=== PATIENT | female | born 1945 | race Caucasian/White ===

== ENCOUNTER 2016-08-09 14:59 | Observation (INO) | payer MEDICARE, OTHER ==
[2016-08-09] MEDS ORDERED: MECLIZINE 25 MG TAB PO STA (16:03)
[2016-08-09] MEDS ORDERED: DIAZEPAM 5 MG/ML 2 ML SYRINGE IVP STA (16:03)
[2016-08-09 16:17] LABS: Basophils # (A) 0.1 k/uL (0-0.2); Basophils % (A) 1 %; CH 30.1; CHCM 34.4; Eosinophils # (A) 0.2 k/uL (0-0.7); Eosinophils % (A) 3 %; HCT 42.2 % (34.0-46.0); HDW 2.45; HGB 14.6 gm/dL (11.4-16.0); Luc # (Auto) 0.12; Luc % (Auto) 2; Lymphocytes # (A) 1.2 k/uL (1.0-4.8); Lymphocytes % (A) 24 %; MCH 30.3 pg (25.0-35.0); MCHC 34.5 g/dL (31.0-37.0); MCV 87.9 fL (80.0-100.0); Mean Platelet Volume 7.9; Monocytes # (A) 0.4 k/uL (0-1.0); Monocytes % (A) 7 %; Neutrophils # (A) 3.2 k/uL (1.3-7.7); Neutrophils % (A) 62 %; RDW 13.1 % (11.5-15.5); WBC 5.1 k/uL (3.8-10.6); WBC (Perox) 4.82
--- NOTE | 2016-08-09 16:24 | ED ---
General Adult HPI - General Chief complaint: Neuro Symptoms/Deficit Stated complaint: Dizziness Time Seen by Provider: 08/09/16 15:15 Source: patient, RN notes reviewed Mode of arrival: wheelchair Limitations: no limitations - History of Present Illness Initial comments: This is a 71-year-old female who presents to the emergency department complaining she feels a little out of it and found it difficult to drive and difficult to walk without having onto something. Patient states she knows everything is going on around her but she feels a little out of it. Patient states if she moves her head things seemed to get worse per patient also states she was nauseated with the sensation. Patient states she did not vomit. Patient denies headache patient denies any specific numbness or weakness. Patient denies any visual disturbance. Patient denies any chest pain palpitations difficulty breathing or shortness of breath. Patient denies any abdominal pain patient denies any vomiting or diarrhea. Patient denies any dysuria hematuria urinary frequency. Patient states the symptoms started last night when she kept getting up and down out of bed because she had diarrhea. - Related Data Home Medications Medication Instructions Recorded Confirmed Metoprolol Tartrate 25 mg PO BID 02/22/15 08/09/16 Allergies Allergy/AdvReac Type Severity Reaction Status Date / Time No Known Allergies Allergy Verified 08/09/16 15:51 Review of Systems ROS Statement: Those systems with pertinent positive or pertinent negative responses have been documented in the HPI. ROS Other: All systems not noted in ROS Statement are negative. Past Medical History Past Medical History: Hypertension Additional Past Medical History / Comment(s): 02/24/15 Pt admitted to floor s/p acromioplasty excision dista clavicle rotator cuff repair L shoulder. Other HX: HYPERCALCEMIA, STATES ASTHMA SYMPTOMS INDUCED FROM CERTAIN FOODS, HX OF LEFT VENTRICULAR TACHYCARDIA History of Any Multi-Drug Resistant Organisms: None Reported Past Surgical History: Cardiac Ablation, Section, Heart Catheterization , Orthopedic Surgery Additional Past Surgical History / Comment(s): 02/24/15 Acromioplasty excision distal clavicle rotator cuff repair L shoulder. Othe surgeries: C-SEC X5 Past Psychological History: No Psychological Hx Reported Smoking Status: Never smoker Past Alcohol Use History: None Reported Past Drug Use History: None Reported General Exam - General Exam Comments Initial Comments: GENERAL: Patient is well-developed and well-nourished. Patient is nontoxic and well- hydrated and is in mild distress. ENT: Neck is soft and supple. No significant lymphadenopathy is noted. Oropharynx is clear. Moist mucous membranes. Neck has full range of motion without eliciting any pain. Patient has no nystagmus EYES: The sclera were anicteric and conjunctiva were pink and moist. Extraocular movements were intact and pupils were equal round and reactive to light. Eyelids were unremarkable. PULMONARY: Unlabored respirations. Good breath sounds bilaterally. No audible rales rhonchi or wheezing was noted. CARDIOVASCULAR: There is a regular rate and rhythm without any murmurs gallops or rubs. ABDOMEN: Soft and nontender with normal bowel sounds. No palpable organomegaly was noted. There is no palpable pulsatile mass. SKIN: Skin is clear with no lesions or rashes and otherwise unremarkable. NEUROLOGIC: Patient is alert and oriented x3. Cranial nerves II through XII are grossly intact. Motor and sensory are also intact. Normal speech, volume and content. Symmetrical smile. Finger to nose testing is good bilaterally. MUSCULOSKELETAL: Normal extremities with adequate strength and full range of motion. No lower extremity swelling or edema. No calf tenderness. LYMPHATICS: No significant lymphadenopathy is noted PSYCHIATRIC: Normal psychiatric evaluation. Normal interpersonal interactions appears functionally intact in deals appropriately with others. No signs of depression. No signs of anxiety. Limitations: no limitations Course Vital Signs 08/09/16 08/09/16 08/09/16 15:03 15:15 16:05 Temperature 97.8 F Pulse Rate 88 82 77 Respiratory 20 16 16 Rate Blood Pressure 205/94 201/98 221/102 O2 Sat by Pulse 98 97 97 Oximetry 08/09/16 08/09/16 08/09/16 16:46 17:05 17:29 Temperature 98.5 F Pulse Rate 72 69 77 Respiratory 15 14 16 Rate Blood Pressure 202/95 194/92 185/82 O2 Sat by Pulse 97 97 99 Oximetry 08/09/16 18:05 Temperature Pulse Rate 81 Respiratory 18 Rate Blood Pressure 199/121 O2 Sat by Pulse 95 Oximetry Medical Decision Making - Medical Decision Making EKG shows normal sinus rhythm at 79 bpm AK interval 260 QRS is 96 Q-T intervals 392 QTC is 449. Patient's EKG shows no ST segment elevation or depression or T- wave abdomen is noted. Chest x-ray shows no acute abnormality. CT of the brain shows no acute normalities. After the patient received Antivert and Valium she was feeling better however the symptoms came back and she was very off balance and she did not feel so she can go home we did try to him tonight the patient. She was extremely off balance and we were afraid she might fall slight admitted the patient. I spoke with Dr. Matos he agreed to admit the patient had reportedly orders - Lab Data Result diagrams: 08/09/16 15:10 08/09/16 15:10 Lab Results 08/09/16 08/09/16 08/09/16 Range/Units 15:10 15:10 15:10 WBC 5.1 (3.8-10.6) k/uL RBC 4.80 (3.80-5.40) m/uL Hgb 14.6 (11.4-16.0) gm/dL Hct 42.2 (34.0-46.0) % MCV 87.9 (80.0-100.0) fL MCH 30.3 (25.0-35.0) pg MCHC 34.5 (31.0-37.0) g/dL RDW 13.1 (11.5-15.5) % Plt Count 228 (150-450) k/uL Neutrophils % 62 % Lymphocytes % 24 % Monocytes % 7 % Eosinophils % 3 % Basophils % 1 % Neutrophils # 3.2 (1.3-7.7) k/uL Lymphocytes # 1.2 (1.0-4.8) k/uL Monocytes # 0.4 (0-1.0) k/uL Eosinophils # 0.2 (0-0.7) k/uL Basophils # 0.1 (0-0.2) k/uL PT (9.0-12.0) sec INR (<1.1) APTT (22.0-30.0) sec Sodium 142 (137-145) mmol/L Potassium 4.0 (3.5-5.1) mmol/L Chloride 105 (98-107) mmol/L Carbon Dioxide 26 (22-30) mmol/L Anion Gap 11 mmol/L BUN 12 (7-17) mg/dL Creatinine 0.50 L (0.52-1.04) mg/dL Est GFR (MDRD) Af Amer >60 (>60 ml/min/1.73 sqM) Est GFR (MDRD) Non-Af >60 (>60 ml/min/1.73 sqM) Glucose 101 H (74-99) mg/dL Calcium 10.4 H (8.4-10.2) mg/dL Magnesium 2.0 (1.6-2.3) mg/dL Total Bilirubin 0.6 (0.2-1.3) mg/dL AST 27 (14-36) U/L ALT 41 (9-52) U/L Alkaline Phosphatase 94 (38-126) U/L Total Creatine Kinase 42 (30-135) U/L CK-MB (CK-2) 0.7 (0.0-2.4) ng/mL CK-MB (CK-2) Rel Index 1.7 Troponin I <0.012 (0.000-0.034) ng/mL Total Protein 7.4 (6.3-8.2) g/dL Albumin 4.2 (3.5-5.0) g/dL Urine Color Urine Appearance (Clear) Urine pH (5.0-8.0) Ur Specific Filley (1.001-1.035) Urine Protein (Negative) Urine Glucose (UA) (Negative) Urine Ketones (Negative) Urine Blood (Negative) Urine Nitrite (Negative) Urine Bilirubin (Negative) Urine Urobilinogen (<2.0) mg/dL Ur Leukocyte Esterase (Negative) 08/09/16 08/09/16 Range/Units 15:10 16:50 WBC (3.8-10.6) k/uL RBC (3.80-5.40) m/uL Hgb (11.4-16.0) gm/dL Hct (34.0-46.0) % MCV (80.0-100.0) fL MCH (25.0-35.0) pg MCHC (31.0-37.0) g/dL RDW (11.5-15.5) % Plt Count (150-450) k/uL Neutrophils % % Lymphocytes % % Monocytes % % Eosinophils % % Basophils % % Neutrophils # (1.3-7.7) k/uL Lymphocytes # (1.0-4.8) k/uL Monocytes # (0-1.0) k/uL Eosinophils # (0-0.7) k/uL Basophils # (0-0.2) k/uL PT 10.6 (9.0-12.0) sec INR 1.0 (<1.1) APTT 23.7 (22.0-30.0) sec Sodium (137-145) mmol/L Potassium (3.5-5.1) mmol/L Chloride (98-107) mmol/L Carbon Dioxide (22-30) mmol/L Anion Gap mmol/L BUN (7-17) mg/dL Creatinine (0.52-1.04) mg/dL Est GFR (MDRD) Af Amer (>60 ml/min/1.73 sqM) Est GFR (MDRD) Non-Af (>60 ml/min/1.73 sqM) Glucose (74-99) mg/dL Calcium (8.4-10.2) mg/dL Magnesium (1.6-2.3) mg/dL Total Bilirubin (0.2-1.3) mg/dL AST (14-36) U/L ALT (9-52) U/L Alkaline Phosphatase (38-126) U/L Total Creatine Kinase (30-135) U/L CK-MB (CK-2) (0.0-2.4) ng/mL CK-MB (CK-2) Rel Index Troponin I (0.000-0.034) ng/mL Total Protein (6.3-8.2) g/dL Albumin (3.5-5.0) g/dL Urine Color Light Yellow Urine Appearance Clear (Clear) Urine pH 8.0 (5.0-8.0) Ur Specific Filley 1.006 (1.001-1.035) Urine Protein Negative (Negative) Urine Glucose (UA) Negative (Negative) Urine Ketones Negative (Negative) Urine Blood Negative (Negative) Urine Nitrite Negative (Negative) Urine Bilirubin Negative (Negative) Urine Urobilinogen <2.0 (<2.0) mg/dL Ur Leukocyte Esterase Negative (Negative) Disposition Clinical Impression: Vertigo Disposition: ADMITTED IP TO THIS HOSP Referrals: Bia Alberto MD [Primary Care Provider] - 1-2 days Time of Disposition: 19:03
[2016-08-09 16:31] LABS: ALT 41 U/L (9-52); AST 27 U/L (14-36); Alkaline Phosphatase 94 U/L (38-126); Anion Gap 11 mmol/L; Blood Urea Nitrogen 12 mg/dL (7-17); Calcium 10.4 mg/dL (8.4-10.2); Carbon Dioxide 26 mmol/L (22-30); Chloride 105 mmol/L (98-107); Glucose 101 mg/dL (74-99); Non-African American GFR(MDRD) >60 (>60 ml/min/1.73 sqM); Sodium 142 mmol/L (137-145); Total Bilirubin 0.6 mg/dL (0.2-1.3); Total Protein 7.4 g/dL (6.3-8.2)
[2016-08-09 16:32] LABS: Partial Thromboplastin Time 23.7 sec (22.0-30.0); Prothrombin Time 10.6 sec (9.0-12.0)
[2016-08-09 16:49] LABS: Creatine Kinase MB 0.7 ng/mL (0.0-2.4); Troponin I <0.012 ng/mL (0.000-0.034)
--- NOTE | 2016-08-09 16:49 | XR ---
EXAMINATION TYPE: XR chest 2V DATE OF EXAM: 08/09/2016 COMPARISON: NONE INDICATION: Chest pain TECHNIQUE: Frontal and lateral views of the chest are obtained. FINDINGS: The heart size is normal. The pulmonary vasculature is normal. The lungs are clear. Calcified lymph node may be in the left axillary region. This was present previ ously. IMPRESSION: 1. No acute pulmonary process.
[2016-08-09 16:50] LABS: Creatine Kinase 42 U/L (30-135)
[2016-08-09 17:08] LABS: Appearance,Urine Clear (Clear); Bilirubin,Urine Negative (Negative); Glucose,Urine (UA) Negative (Negative); Ketones,Urine Negative (Negative); Leukocyte Esterase,Urine Negative (Negative); Nitrite,Urine Negative (Negative); Protein,Urine Negative (Negative); Specific Gravity,Urine 1.006 (1.001-1.035); UA Billing (MACRO vs. MICRO) CHEM; Urobilinogen,Urine <2.0 mg/dL (<2.0)
[2016-08-09] MEDS ORDERED: hydrALAZINE HCL 20 MG/ML 1 ML VIAL IVP STA (17:14)
--- NOTE | 2016-08-09 17:27 | CT ---
EXAMINATION TYPE: CT brain wo con DATE OF EXAM: 08/09/2016 COMPARISON: NONE HISTORY: Hypertension CT DLP: 822.6 mGycm Automated exposure control for dose reduction was used. FINDINGS: Ventricles of normal size. There is no mass effect nor midline shift. There is no sign of intracrania l hemorrhage. The calvarium is intact. IMPRESSION: NEGATIVE UNENHANCED HEAD CT SCAN.
[2016-08-09] MEDS ORDERED: SODIUM CHLORIDE 0.9% 1,000 ML IV ONE (19:04)
[2016-08-09] MEDS ORDERED: MECLIZINE 25 MG TAB PO PRN (19:05)
[2016-08-09] MEDS: METOPROLOL TARTRATE 25 MG TAB PO SCH (23:13)
[2016-08-09] MEDS ORDERED: ALPRAZolam 0.25 MG TAB PO PRN (23:48)
[2016-08-10] MEDS: ACETAMINOPHEN TAB 325 MG TAB PO PRN (07:16)
[2016-08-10] MEDS: ENALAPRILAT 1.25 MG/ML 1 ML VIAL IVP PRN (07:17)
[2016-08-10] MEDS: METOPROLOL TARTRATE 25 MG TAB PO SCH ×2 (08:42→19:28)
--- NOTE | 2016-08-10 12:27 | P.HPIM ---
History of Present Illness H&P Date: 08/10/16 Chief Complaint: Dizziness and vertigo Patient is a 71-year-old female, patient of Dr. Alberto who presented to [facility] emergency room due to severe dizziness, and inability to walk due to her dizziness, she was evaluated in emergency room by Dr. Campoverde, laboratory examination and computed tomography scan of the brain did not reveal any significant abnormality, patient was admitted to medical floor for further evaluation. Neurology consultation was requested. On presentation patient had severely elevated blood pressure of 205/94 at home patient is maintained on metoprolol 25 mg twice daily, she was restarted on that , and Vasotec IV when necessary was added, currently blood pressure is well- controlled. On review of system patient denies any fever or chills no headache There is no chest pain or shortness of breath no cough No nausea or vomiting no abdominal pain no diarrhea or constipation no blood in the stools No burning was urination no frequency or urgency and no hematuria Past medical history significant for History of ventricular tachycardia patient follows with Dr. Montes she had previous history of ablation several years ago Patient also has previous history of anxiety and panic disorder Past Medical History Past Medical History: Hypertension Additional Past Medical History / Comment(s): 02/24/15 Pt admitted to floor s/p acromioplasty excision dista clavicle rotator cuff repair L shoulder. Other HX: HYPERCALCEMIA, STATES ASTHMA SYMPTOMS INDUCED FROM CERTAIN FOODS, HX OF LEFT VENTRICULAR TACHYCARDIA History of Any Multi-Drug Resistant Organisms: None Reported Past Surgical History: Cardiac Ablation, Section, Heart Catheterization , Orthopedic Surgery Additional Past Surgical History / Comment(s): 02/24/15 Acromioplasty excision distal clavicle rotator cuff repair L shoulder. Othe surgeries: C-SEC X5 Past Anesthesia/Blood Transfusion Reactions: Postoperative Nausea & Vomiting ( PONV) Smoking Status: Never smoker - Past Family History Father Family Medical History: Cancer Additional Family Medical History / Comment(s): SKIN CANCER Mother Family Medical History: No Reported History Sister(s) Additional Family Medical History / Comment(s): SKIN CANCER Medications and Allergies Home Medications Medication Instructions Recorded Confirmed Type Metoprolol Tartrate 25 mg PO BID 02/22/15 08/09/16 History Allergies Allergy/AdvReac Type Severity Reaction Status Date / Time No Known Allergies Allergy Verified 08/09/16 20:58 Physical Exam Vitals: Vital Signs Temp Pulse Pulse Resp BP BP Pulse Ox 08/10/16 08:00 98.7 F 82 16 138/63 93 L 08/10/16 04:00 16 08/10/16 03:52 98.1 F 76 16 180/79 93 L 08/09/16 23:19 18 08/09/16 23:18 97.8 F 91 18 179/72 94 L 08/09/16 21:00 98.3 F 84 18 176/81 96 08/09/16 20:00 74 20 190/81 99 08/09/16 19:10 78 14 187/78 96 08/09/16 18:05 81 18 199/121 95 08/09/16 17:29 77 16 185/82 99 08/09/16 17:05 69 14 194/92 97 08/09/16 16:46 98.5 F 72 15 202/95 97 08/09/16 16:05 77 16 221/102 97 08/09/16 15:15 82 16 201/98 97 08/09/16 15:03 97.8 F 88 20 205/94 98 Intake and Output 08/09/16 08/10/16 08/10/16 22:59 06:59 14:59 Intake Total 200 236 Balance 200 236 Intake: Oral 200 236 Other: Voiding Method Toilet Toilet Toilet # Voids 3 Weight 95.254 kg In general patient is alert and oriented 3 in no apparent distress HEENT head normocephalic and atraumatic Neck is supple no JVD no goiter no lymphadenopathy Chest exam reveals clear respiratory sounds no crackles no wheezing Cardiac exam reveals regular heart sounds no gallops no murmurs Abdomen is soft nontender no organomegaly with normal bowel sounds Extremity exam reveals no edema no cyanosis or clubbing Results CBC & Chem 7: 08/09/16 15:10 08/09/16 15:10 Labs: Abnormal Lab Results - Last 24 Hours (Table) 08/09/16 Range/Units 15:10 Creatinine 0.50 L (0.52-1.04) mg/dL Glucose 101 H (74-99) mg/dL Calcium 10.4 H (8.4-10.2) mg/dL Assessment and Plan Plan: #1 episode of severe dizziness #2 hypertensive emergency on presentation #3 underlying history of ventricular tachycardia was previous history of catheter ablation in the past followed as outpatient by Dr. Carlos #4 underlying history of panic disorder At this time will continue was current management will add lisinopril 5 mg by mouth once daily and monitor blood pressure Consultation for cardiology and neurology were initiated, White blood count was elevated at 15,000 on presentation no clear infectious focus Will check urine analysis Will follow during this admission please see orders thank you very much end
--- NOTE | 2016-08-10 13:07 | P.CNNES ---
History of Present Illness Consult date: 08/10/16 History of Present Illness: The patient is a 71-year-old right-handed white female who reports that yesterday morning she woke up feeling unwell. She states that the previous night she had woken up many times to use the bathroom. She woke up feeling like she was not in control of herself. She denies vertigo or dizziness but states she may have had a little vertigo. She took her blood pressure later in the morning and was 160/97. I'll like she couldn't see sometimes towards the right periphery. Denied any focal weakness numbness double vision or blurred vision or speech disturbance. Her friend brought her to the emergency room. She was admitted to the hospital with vertigo and hypertensive emergency. She reports she is feeling much better today. Longer has that feeling that she has any loss of control or loss of peripheral vision. He did have a CT of the brain in the emergency room which was negative. Review of Systems Constitutional: Denies chills, Denies fever Eyes: denies blurred vision, denies pain Ears, nose, mouth and throat: Denies headache, Denies sore throat Cardiovascular: Denies chest pain, Denies shortness of breath Respiratory: Denies cough Neurological: Denies numbness, Denies weakness Psychiatric: Denies anxiety, Denies depression Past Medical History Past Medical History: Hypertension Additional Past Medical History / Comment(s): 02/24/15 Pt admitted to floor s/p acromioplasty excision dista clavicle rotator cuff repair L shoulder. Other HX: HYPERCALCEMIA, STATES ASTHMA SYMPTOMS INDUCED FROM CERTAIN FOODS, HX OF LEFT VENTRICULAR TACHYCARDIA History of Any Multi-Drug Resistant Organisms: None Reported Past Surgical History: Cardiac Ablation, Section, Heart Catheterization , Orthopedic Surgery Additional Past Surgical History / Comment(s): 02/24/15 Acromioplasty excision distal clavicle rotator cuff repair L shoulder. Othe surgeries: C-SEC X5 Past Anesthesia/Blood Transfusion Reactions: Postoperative Nausea & Vomiting ( PONV) Smoking Status: Never smoker - Past Family History Father Family Medical History: Cancer Additional Family Medical History / Comment(s): SKIN CANCER Mother Family Medical History: No Reported History Sister(s) Additional Family Medical History / Comment(s): SKIN CANCER Medications and Allergies Home Medications Medication Instructions Recorded Confirmed Type Metoprolol Tartrate 25 mg PO BID 02/22/15 08/09/16 History Allergies Allergy/AdvReac Type Severity Reaction Status Date / Time No Known Allergies Allergy Verified 08/09/16 20:58 Physical Examination - Vital Signs Vital Signs: Vital Signs Temp Pulse Pulse Resp BP BP Pulse Ox 08/10/16 12:27 93 F L 70 16 126/61 93 L 08/10/16 08:00 98.7 F 82 16 138/63 93 L 08/10/16 04:00 16 08/10/16 03:52 98.1 F 76 16 180/79 93 L 08/09/16 23:19 18 08/09/16 23:18 97.8 F 91 18 179/72 94 L 08/09/16 21:00 98.3 F 84 18 176/81 96 08/09/16 20:00 74 20 190/81 99 08/09/16 19:10 78 14 187/78 96 08/09/16 18:05 81 18 199/121 95 08/09/16 17:29 77 16 185/82 99 08/09/16 17:05 69 14 194/92 97 08/09/16 16:46 98.5 F 72 15 202/95 97 08/09/16 16:05 77 16 221/102 97 08/09/16 15:15 82 16 201/98 97 08/09/16 15:03 97.8 F 88 20 205/94 98 Intake and Output 08/09/16 08/10/16 08/10/16 22:59 06:59 14:59 Intake Total 200 236 Balance 200 236 Intake: Oral 200 236 Other: Voiding Method Toilet Toilet Toilet # Voids 3 1 Weight 95.254 kg - Constitutional General appearance: average body habitus - EENT EENT: PERRL, hearing intact - Respiratory Respiratory: lungs clear - Cardiovascular Cardiovascular: regular rate - Neurologic Cranial nerve examination: V1/V2/V3 grossly intact, face symmetric, tongue midline Speech examination: intact Detailed motor examination: grossly full strength in all extremities Reflex and gait examination: normal gait - Psychiatric Psychiatric: mood/affect appropriate Results - Laboratory Findings CBC and BMP: 08/09/16 15:10 08/09/16 15:10 Abnormal Lab Findings: Abnormal Labs 08/09/16 15:10 Creatinine 0.50 L Glucose 101 H Calcium 10.4 H Assessment and Plan (1) Vertigo Status: Acute Code(s): R42 - DIZZINESS AND GIDDINESS (2) Hypertensive emergency Status: Acute Code(s): I16.1 - HYPERTENSIVE EMERGENCY Plan: The patient is a 71-year-old woman was admitted to the hospital with vertigo and hypertensive emergency. She is feeling much better today. Recommend TIA workup including carotid ultrasound and echocardiogram. We'll start the patient on 1 baby aspirin daily.
--- NOTE | 2016-08-10 16:47 | US ---
EXAMINATION TYPE: US carotid duplex BILAT DATE OF EXAM: 08/10/2016 COMPARISON: NONE CLINICAL HISTORY: Vertigo. EXAM MEASUREMENTS: RIGHT: Peak Systolic Velocity (PSV) cm/sec ----- Right CCA: 87.1 ----- Right ICA: 106.0 ----- Right ECA: 107.3 ICA/CCA ratio: 1.2 RIGHT: End Diastole cm/sec ----- Right CCA: 15.9 ----- Right ICA: 36.1 ----- Right ECA: 6.3 LEFT: Peak Systolic Velocity (PSV) cm/sec ----- Left CCA: 80.5 ----- Left ICA: 117.7 ----- Left ECA: 69.1 ICA/CCA ratio: 1.5 LEFT: End Diastole cm/sec ----- Left CCA: 13.1 ----- Left ICA: 27.3 ----- Left ECA: 6.5 VERTEBRALS (direction of flow): Right Vertebral: Antegrade Left Vertebral: Antegrade No significant stenosis seen, tortuous vessels. Intimal thickening and scattered small plaques are present. No elevated velocities present. Ratios ap pear within normal limits. IMPRESSION: Atheromatous plaquing and intimal thickening without significant flow-limiting stenosis. Criteria for Assigning % of Stenosis / Diameter reduction (Estimation based on the indirect measurements of the internal carotid artery velocities (ICA PSV). 1. Normal (no stenosis)=ICA PSV < 125 cm/s: ratio < 2.0: ICA EDV<40 cm/s. 2. Less than 50% stenosis=ICA PSV < 125 cm/s: ratio < 2.0: ICA EDV<40 cm/s. 3. 50 to 69% stenosis=ICA PSV of 125 to 230 cm/s: ration 2.0 ? 4.0: ICA EDV 40-100 cm/s. 4. Greater than 70% stenosis to near occlusion= ICA PSV > 230 cm/s: ratio > 4.0: ICA EDV > 100 cm/s. 5. Near occlusion= ICA PSV velocities may be low or undetectable: variable ratio and ICA EDV. 6. Total occlusion=unable to detect flow.
[2016-08-11 03:55] VITALS: RESP 16
[2016-08-11] MEDS: ENALAPRILAT 1.25 MG/ML 1 ML VIAL IVP PRN (05:54)
[2016-08-11 07:28] LABS: Basophils # (A) 0.1 k/uL (0-0.2); Basophils % (A) 1 %; CH 29.9; CHCM 33.7; Eosinophils # (A) 0.2 k/uL (0-0.7); Eosinophils % (A) 4 %; HCT 42.5 % (34.0-46.0); HDW 2.43; HGB 14.3 gm/dL (11.4-16.0); Luc # (Auto) 0.15; Luc % (Auto) 3; Lymphocytes # (A) 1.4 k/uL (1.0-4.8); Lymphocytes % (A) 26 %; MCHC 33.6 g/dL (31.0-37.0); MCV 89.2 fL (80.0-100.0); Mean Platelet Volume 7.9; Monocytes # (A) 0.5 k/uL (0-1.0); Monocytes % (A) 9 %; Neutrophils # (A) 3.2 k/uL (1.3-7.7); Neutrophils % (A) 58 %; RBC 4.76 m/uL (3.80-5.40); RDW 13.2 % (11.5-15.5); WBC 5.5 k/uL (3.8-10.6); WBC (Perox) 5.21
[2016-08-11 07:46] LABS: ALT 34 U/L (9-52); AST 23 U/L (14-36); Alkaline Phosphatase 82 U/L (38-126); Anion Gap 11 mmol/L; Blood Urea Nitrogen 14 mg/dL (7-17); Carbon Dioxide 26 mmol/L (22-30); Chloride 105 mmol/L (98-107); Glucose 89 mg/dL (74-99); Non-African American GFR(MDRD) >60 (>60 ml/min/1.73 sqM); Potassium 3.6 mmol/L (3.5-5.1); Sodium 142 mmol/L (137-145); Total Bilirubin 0.7 mg/dL (0.2-1.3); Total Protein 7.3 g/dL (6.3-8.2)
[2016-08-11] MEDS: METOPROLOL TARTRATE 25 MG TAB PO SCH (09:13)
--- NOTE | 2016-08-11 09:22 | P.CRDCN ---
History of Present Illness Consult date: 08/11/16 History of present illness: This is a 71-year-old female with history of anxiety who comes to the hospital with complaints of having episodes of of not feeling well and unable to focus with some visual disturbances. Apparently the symptoms started and therefore yesterday. She was also complaining of mild symptoms size to of vertigo. Patient was seen by neurology. Patient had a carotid duplex study. Computed tomography scan of the brain which did not reveal any significant abnormalities. Patient was slightly hypertensive on admission. Yesterday she felt better. Last night patient could not sleep well. Today she feels slightly weak. Denies any chest pain or shortness of breath. EKG did not reveal any acute changes. Monitor strips did not reveal any cardiac arrhythmias. Echo Cardigan showed good LV function. At this point patient will be discharged home. No further cardiac evaluation is necessary at this time. Follow-up in the office in one week Review of Systems REVIEW OF SYSTEMS: CONSTITUTIONAL:. Patient is inked fatigue and restlessness EYES: Denies diplopia, blurring of vision EARS, NOSE, MOUTH, THROAT: Denies headaches, denies sore throat. CARDIOVASCULAR: Denies chest pain, denies shortness of breath, denies palpitations RESPIRATORY: Denies shortness of breath, denies cough. GASTROINTESTINAL: Denies change in appetite, denies abdominal pain, denies diarrhea GENITOURINARY: Denies hematuria, denies infections. MUSKULOSKELETAL: Denies pain, denies swelling. Denies any cramps or claudication INTEGUMENTARY: Denies rash, denies eczema. NEUROLOGICAL: vague visual disturbance PSYCHIATRIC: Denies anxiety, denies depression. HEMATOLOGIC/LYMPHATIC: Denies any bleeding, denies enlarged lymph nodes. Past Medical History Past Medical History: Hypertension Additional Past Medical History / Comment(s): 02/24/15 Pt admitted to floor s/p acromioplasty excision dista clavicle rotator cuff repair L shoulder. Other HX: HYPERCALCEMIA, STATES ASTHMA SYMPTOMS INDUCED FROM CERTAIN FOODS, HX OF LEFT VENTRICULAR TACHYCARDIA History of Any Multi-Drug Resistant Organisms: None Reported Past Surgical History: Cardiac Ablation, Section, Heart Catheterization , Orthopedic Surgery Additional Past Surgical History / Comment(s): 02/24/15 Acromioplasty excision distal clavicle rotator cuff repair L shoulder. Othe surgeries: C-SEC X5 Past Anesthesia/Blood Transfusion Reactions: Postoperative Nausea & Vomiting ( PONV) Smoking Status: Never smoker - Past Family History Father Family Medical History: Cancer Additional Family Medical History / Comment(s): SKIN CANCER Mother Family Medical History: No Reported History Sister(s) Additional Family Medical History / Comment(s): SKIN CANCER Medications and Allergies Home Medications Medication Instructions Recorded Confirmed Type Metoprolol Tartrate 25 mg PO BID 02/22/15 08/09/16 History Allergies Allergy/AdvReac Type Severity Reaction Status Date / Time No Known Allergies Allergy Verified 08/09/16 20:58 Physical Exam Vitals: Vital Signs Temp Pulse Resp BP Pulse Ox 08/11/16 07:40 97.6 F 82 16 146/63 94 L 08/11/16 05:50 182/82 08/11/16 03:54 97.7 F 84 16 167/75 94 L 08/11/16 03:17 18 08/11/16 00:00 97.7 F 78 18 136/63 95 08/10/16 23:15 16 08/10/16 20:00 97.9 F 86 16 131/82 95 08/10/16 19:23 16 08/10/16 17:26 97.7 F 90 16 137/67 96 08/10/16 12:27 93 F L 70 16 126/61 93 L Intake and Output 08/10/16 08/11/16 08/11/16 22:59 06:59 14:59 Intake Total 250 250 Balance 250 250 Intake: Oral 250 250 Other: Voiding Method Toilet Toilet # Voids 2 2 GENERAL EXAM: Patient is alert and oriented and doesn't appear to be in any acute distress HEENT: Normocephalic. Normal reaction of pupils, equal size, normal range of extraocular motion. No erythema or exudates in the throat. NECK: No masses, no nuchal rigidity. CHEST: No chest wall deformity. LUNGS: Equal air entry with no crackles or wheeze. HEART: S1 and S2 normal with no audible mumurs or gallops. Regular rhythm, femorals equal on both sides.. ABDOMEN: No hepatosplenomegaly, normal bowel sounds, no guarding or rigidity. SKIN: No rashes CENTRAL NERVOUS SYSTEM: No focal deficits. EXTREMITIES: No cyanosis, clubbing or edema. Results 08/11/16 06:10 08/11/16 06:10 Cardiac Enzymes 08/11/16 Range/Units 06:10 AST 23 (14-36) U/L CBC 08/11/16 Range/Units 06:10 WBC 5.5 (3.8-10.6) k/uL RBC 4.76 (3.80-5.40) m/uL Hgb 14.3 (11.4-16.0) gm/dL Hct 42.5 (34.0-46.0) % Plt Count 201 (150-450) k/uL Comprehensive Metabolic Panel 08/11/16 Range/Units 06:10 Sodium 142 (137-145) mmol/L Potassium 3.6 (3.5-5.1) mmol/L Chloride 105 (98-107) mmol/L Carbon Dioxide 26 (22-30) mmol/L BUN 14 (7-17) mg/dL Creatinine 0.51 L (0.52-1.04) mg/dL Glucose 89 (74-99) mg/dL Calcium 10.0 (8.4-10.2) mg/dL AST 23 (14-36) U/L ALT 34 (9-52) U/L Alkaline Phosphatase 82 (38-126) U/L Total Protein 7.3 (6.3-8.2) g/dL Albumin 4.1 (3.5-5.0) g/dL Current Medications Generic Name Dose Route Start Last Admin Trade Name Freq PRN Reason Stop Dose Admin Acetaminophen 650 mg 08/09/16 23:47 08/10/16 07:16 Tylenol Tab PO 650 mg Q4HR PRN Administration Fever and/ or Pain Alprazolam 0.25 mg 08/09/16 23:48 08/11/16 05:58 Xanax PO 0.25 mg Q4H PRN Administration Anxiety Enalaprilat 1.25 mg 08/09/16 23:45 08/11/16 05:54 Vasotec IVP 1.25 mg Q6HR PRN Administration Blood Pressure - High Meclizine HCl 25 mg 08/09/16 19:05 Antivert PO BID PRN Vertigo Metoprolol Tartrate 25 mg 08/09/16 22:30 08/11/16 09:13 Lopressor PO 25 mg BID NABIL Administration Intake and Output 08/10/16 08/11/1617 22:59 06:59 14:59 Intake Total 250 250 Balance 250 250 Intake: Oral 250 250 Other: Voiding Method Toilet Toilet # Voids 2 2 08/11/16 06:10 08/11/16 06:10 EKG Interpretations (text) Sinus rhythm Assessment and Plan (1) History of ventricular tachycardia Status: Acute (2) Hypertensive emergency Status: Acute (3) Vertigo Status: Acute Plan: Her echocardiogram showed good LV function. Carotid duplex study did not reveal any significant obstruction. No arrhythmias are documented. Patient will be discharged home from [facility] standpoint. Follow-up as an outpatient in 2 weeks.
--- NOTE | 2016-08-11 09:43 | ECHOF ---
Referral Reason:Vertigo MEASUREMENTS -------- HEIGHT: 162.6 cm WEIGHT: 95.3 kg BP: IVSd: 1.6 cm (0.6 - 1.1) LVIDd: 3.4 cm (3.9 - 5.3) LVPWd: 1.6 cm (0.6 - 1.1) IVSs: 1.9 cm LVIDs: 2.0 cm LVPWs: 2.1 cm Ao Diam: 3.1 cm (2.0 - 3.7) AV Cusp: 1.7 cm (1.5 - 2.6) LA Diam: 3.7 cm (2.7 - 3.8) MV EXCURSION: 13.189 mm (> 18.000) MV EF SLOPE: 33 mm/s (70 - 150) EPSS: 1.1 cm MV E Devang: 0.49 m/s MV DecT: 226 ms MV A Devang: 0.64 m/s MV E/A Ratio: 0.77 RAP: 5.00 mmHg RVSP: 12.70 mmHg FINDINGS -------- Sinus rhythm. This was a technically good study. There is moderate concentric left ventricular hypertrophy. Overall left ventricular systolic function is normal with, an EF between 55 - 60 %. The right ventricle is normal in size and function. The left atrium is normal in size. The right atrium is normal in size. The aortic valve is trileaflet, and appears structurally normal. No aortic stenosis or regurgitation. Normal appearing mitral valve. Trace tricuspid regurgitation present. The right ventricular systolic pressure, as measured by Doppler, is 12.70mmHg. Pulmonic valve appears structurally normal. The aortic root size is normal. The pericardium is normal. CONCLUSIONS -------- 1. Sinus rhythm. 2. Trace tricuspid regurgitation present. 3. The right ventricular systolic pressure, as measured by Doppler, is 12.70mmHg. 4. Pulmonic valve appears structurally normal. 5. The aortic root size is normal. 6. The pericardium is normal. 7. This was a technically good study. 8. There is moderate concentric left ventricular hypertrophy. 9. Overall left ventricular systolic function is normal with, an EF between 55 - 60 %. 10. The right ventricle is normal in size and function. 11. The left atrium is normal in size. 12. The right atrium is normal in size. 13. The aortic valve is trileaflet, and appears structurally normal. No aortic stenosis or regurgitation. 14. Normal appearing mitral valve. GAUGE CHECKER: Cora Amador RDCS
[2016-08-11] MEDS: ACETAMINOPHEN TAB 325 MG TAB PO PRN (11:35)
[2016-08-11 11:37] VITALS: BP 140/72; PULSE 81; TEMP 97.9
[2016-08-11] MEDS ORDERED: ALPRAZolam 0.25 MG TAB PO PRN (12:41)
[2016-08-11] MEDS ORDERED: LISINOPRIL 5 MG TAB PO SCH (13:00)
== END 2016-08-11 13:13 | disposition home or self-care (01) ==
LOC: EC 14:59 → 3OBS 19:04
PROVIDERS: ADMIT Internal Medicine; ATTEND Internal Medicine
DX: R42 Dizziness and giddiness (principal); I16.1 Hypertensive emergency; I10 Essential (primary) hypertension; I47.2 Ventricular tachycardia; F41.0 Panic disorder [episodic paroxysmal anxiety]; Z79.899 Other long term (current) drug therapy; D72.829 Elevated white blood cell count, unspecified; Z80.8 Family history of malignant neoplasm of other organs or systems
CPT/HCPCS: 96375 ×2; 96376; 96374; 99285; 36415; 93005; 93306; 80053 ×2; 82550; 82553; 83735; 84484; 85025 ×2; 85610; 85730; 81003; 71020; 93880; 70450; G0378 ×3; J0360; J3360

== ENCOUNTER 2016-08-18 09:44 | Emergency (ER) | payer MEDICARE, OTHER ==
[2016-08-18] MEDS ORDERED: hydrALAZINE HCL 20 MG/ML 1 ML VIAL IVP STA (10:28)
[2016-08-18] MEDS ORDERED: SODIUM CHLORIDE 0.9% 500 ML IV STA (10:28)
--- NOTE | 2016-08-18 10:41 | ED ---
General Adult HPI - General Chief complaint: Recheck/Abnormal Lab/Rx Stated complaint: HYPERTENSION Time Seen by Provider: 08/18/16 10:19 Source: patient, RN notes reviewed Mode of arrival: ambulatory Limitations: no limitations - History of Present Illness Initial comments: Patient is a 71-year-old female who presents emergency room today with a chief complaint of elevated blood pressure. She does admit that she was seen here approximately a week ago with elevated blood pressure along with vertigo at the time. She states that she was discharged home with prescriptions for Xanax and lisinopril. She states Xanax filled but did not realize that the lisinopril was for her blood pressure and thought it was due to for the vertigo. Patient does admit that she's been checking her blood pressure at home. She states she' s been ranging with a systolic in the 160s and 170s per she states that this morning was greater than 180 and she did have a little headache yesterday. She states headache is not bad today but she came here to be checked with this elevated blood pressure. Patient denies any other complaints or symptoms at this time. She also admits that she does take Lopressor 25 mg twice a day which she has been taking. Patient denies any recent fever, chills, shortness of breath, chest pain, back pain, abdominal pain, nausea or vomiting, numbness or tingling, dysuria or hematuria, constipation or diarrhea, visual changes, or any other complaints. - Related Data Home Medications Medication Instructions Recorded Confirmed Metoprolol Tartrate 25 mg PO BID 02/22/15 08/09/16 Previous Rx's Medication Instructions Recorded ALPRAZolam [Xanax] 0.25 mg PO TID PRN tab 08/11/16 Lisinopril [Zestril] 5 mg PO DAILY tab 08/11/16 Meclizine [Antivert] 25 mg PO BID PRN tab 08/11/16 Allergies Allergy/AdvReac Type Severity Reaction Status Date / Time No Known Allergies Allergy Verified 08/09/16 20:58 Review of Systems ROS Statement: Those systems with pertinent positive or pertinent negative responses have been documented in the HPI. ROS Other: All systems not noted in ROS Statement are negative. Past Medical History Past Medical History: Hypertension Additional Past Medical History / Comment(s): 02/24/15 Pt admitted to floor s/p acromioplasty excision dista clavicle rotator cuff repair L shoulder. Other HX: HYPERCALCEMIA, STATES ASTHMA SYMPTOMS INDUCED FROM CERTAIN FOODS, HX OF LEFT VENTRICULAR TACHYCARDIA History of Any Multi-Drug Resistant Organisms: None Reported Past Surgical History: Cardiac Ablation, Section, Heart Catheterization , Orthopedic Surgery Additional Past Surgical History / Comment(s): 02/24/15 Acromioplasty excision distal clavicle rotator cuff repair L shoulder. Othe surgeries: C-SEC X5 Past Anesthesia/Blood Transfusion Reactions: Postoperative Nausea & Vomiting ( PONV) Past Psychological History: No Psychological Hx Reported Smoking Status: Never smoker Past Alcohol Use History: None Reported Past Drug Use History: None Reported - Past Family History Father Family Medical History: Cancer Additional Family Medical History / Comment(s): SKIN CANCER Mother Family Medical History: No Reported History Sister(s) Additional Family Medical History / Comment(s): SKIN CANCER General Exam - General Exam Comments Initial Comments: General: The patient is awake and alert, in no distress, and does not appear acutely ill. Eye: Pupils are equal, round and reactive to light, extra-ocular movements are intact. No nystagmus. There is normal conjunctiva bilaterally. No signs of icterus. Ears, nose, mouth and throat: There are moist mucous membranes and no oral lesions. Neck: The neck is supple, there is no tenderness or JVD. Cardiovascular: There is a regular rate and rhythm. No murmur, rub or gallop is appreciated. Respiratory: Lungs are clear to auscultation, respirations are non-labored, breath sounds are equal. No wheezes, stridor, rales, or rhonchi. Gastrointestinal: Soft, non-distended, non-tender abdomen without masses or organomegaly noted. There is no rebound or guarding present. No CVA tenderness. Bowel sounds are unremarkable. Musculoskeletal: Normal ROM, no tenderness. Strength 5/5. Sensation intact. Pulses equal bilaterally 2+. Neurological: A&O x 3. CN II-XII intact, There are no obvious motor or sensory deficits. Coordination appears grossly intact. Speech is normal. Skin: Skin is warm and dry and no rashes or lesions are noted. Psychiatric: Cooperative, appropriate mood & affect, normal judgment. Limitations: no limitations Course Vital Signs 08/18/16 08/18/16 09:46 10:54 Temperature 97.3 F L Pulse Rate 78 74 Respiratory 18 20 Rate Blood Pressure 221/95 165/67 O2 Sat by Pulse 97 98 Oximetry - Reevaluation(s) Reevaluation #1: 08/18/16 10:57 Patient reexamined at this time shows no signs of distress. Blood pressure rechecked after hydralazine currently 161/68. Medical Decision Making - Medical Decision Making 1221: As reexamined at this time shows no signs of distress is resting comfortably sitting up in the chair at bedside. Patient EKG performed at 11:30: A 12-lead EKG was performed and interpreted by me as showing the following: Rate is 75, and rhythm is normal sinus. There are normal QRS complexes and normal R-wave progression. ST segments have no elevation or depression, and DC segments appear normal. Patient did feel jittery after receiving hydralazine. Patient blood pressure is improved here in emergency room. This time patient feeling better symptomatically will be discharged home advised to begin her prescription of lisinopril. Advised to follow-up family doctor over the next 2 days and continue walker blood pressures at home. Advised return here to emergency room symptoms increase worsen or for any other concerns. - Lab Data Result diagrams: 08/18/16 10:39 08/18/16 10:39 Lab Results 08/18/16 08/18/16 Range/Units 10:39 10:39 WBC 5.4 (3.8-10.6) k/uL RBC 4.87 (3.80-5.40) m/uL Hgb 14.7 (11.4-16.0) gm/dL Hct 42.9 (34.0-46.0) % MCV 88.0 (80.0-100.0) fL MCH 30.2 (25.0-35.0) pg MCHC 34.4 (31.0-37.0) g/dL RDW 12.9 (11.5-15.5) % Plt Count 213 (150-450) k/uL Neutrophils % 62 % Lymphocytes % 25 % Monocytes % 6 % Eosinophils % 3 % Basophils % 1 % Neutrophils # 3.3 (1.3-7.7) k/uL Lymphocytes # 1.3 (1.0-4.8) k/uL Monocytes # 0.3 (0-1.0) k/uL Eosinophils # 0.2 (0-0.7) k/uL Basophils # 0.1 (0-0.2) k/uL Sodium 143 (137-145) mmol/L Potassium 4.8 (3.5-5.1) mmol/L Chloride 106 (98-107) mmol/L Carbon Dioxide 26 (22-30) mmol/L Anion Gap 11 mmol/L BUN 8 (7-17) mg/dL Creatinine 0.48 L (0.52-1.04) mg/dL Est GFR (MDRD) Af Amer >60 (>60 ml/min/1.73 sqM) Est GFR (MDRD) Non-Af >60 (>60 ml/min/1.73 sqM) Glucose 100 H (74-99) mg/dL Calcium 10.5 H (8.4-10.2) mg/dL Magnesium 2.1 (1.6-2.3) mg/dL Total Bilirubin 0.7 (0.2-1.3) mg/dL AST 24 (14-36) U/L ALT 27 (9-52) U/L Alkaline Phosphatase 87 (38-126) U/L Total Protein 7.8 (6.3-8.2) g/dL Albumin 4.4 (3.5-5.0) g/dL Disposition Clinical Impression: Hypertension Disposition: HOME SELF-CARE Condition: Good Instructions: Hypertension (ED) Additional Instructions: Please use medication as discussed. Please follow-up with family doctor in the next 2 days of symptoms have not improved. Please return to emergency room if the symptoms increase or worsen or for any other concerns. Referrals: Bia Alberto MD [Primary Care Provider] - 1-2 days Time of Disposition: 12:15
[2016-08-18 10:53] LABS: Basophils # (A) 0.1 k/uL (0-0.2); Basophils % (A) 1 %; CH 30.2; CHCM 34.5; Eosinophils # (A) 0.2 k/uL (0-0.7); Eosinophils % (A) 3 %; HCT 42.9 % (34.0-46.0); HDW 2.48; HGB 14.7 gm/dL (11.4-16.0); Luc # (Auto) 0.12; Luc % (Auto) 2; Lymphocytes # (A) 1.3 k/uL (1.0-4.8); Lymphocytes % (A) 25 %; MCH 30.2 pg (25.0-35.0); MCHC 34.4 g/dL (31.0-37.0); Mean Platelet Volume 7.8; Monocytes # (A) 0.3 k/uL (0-1.0); Monocytes % (A) 6 %; Neutrophils # (A) 3.3 k/uL (1.3-7.7); Neutrophils % (A) 62 %; RBC 4.87 m/uL (3.80-5.40); RDW 12.9 % (11.5-15.5); WBC 5.4 k/uL (3.8-10.6); WBC (Perox) 5.06
[2016-08-18 11:08] LABS: ALT 27 U/L (9-52); AST 24 U/L (14-36); Alkaline Phosphatase 87 U/L (38-126); Anion Gap 11 mmol/L; Blood Urea Nitrogen 8 mg/dL (7-17); Calcium 10.5 mg/dL (8.4-10.2); Carbon Dioxide 26 mmol/L (22-30); Chloride 106 mmol/L (98-107); Glucose 100 mg/dL (74-99); Magnesium 2.1 mg/dL (1.6-2.3); Non-African American GFR(MDRD) >60 (>60 ml/min/1.73 sqM); Potassium 4.8 mmol/L (3.5-5.1); Sodium 143 mmol/L (137-145); Total Bilirubin 0.7 mg/dL (0.2-1.3); Total Protein 7.8 g/dL (6.3-8.2)
[2016-08-18 12:40] VITALS: BP 181/73; PULSE 76; RESP 18; TEMP 97.4
== END 2016-08-18 12:39 | disposition home or self-care (01) ==
LOC: EC 09:44
DX: I10 Essential (primary) hypertension (principal); Z79.899 Other long term (current) drug therapy
CPT/HCPCS: 99283; 96374; 96361; 36415; 93005; 80053; 83735; 85025; J0360

== ENCOUNTER → 2018-05-05 | Outpatient (CLI) | payer MEDICARE, OTHER ==
--- NOTE | 2018-05-05 15:29 | BD ---
EXAMINATION TYPE: Axial Bone Density DATE OF EXAM: 05/05/2018 COMPARISON: 07.25.2015 CLINICAL HISTORY: 73 YR OLD FEMALE.....ICD-10 CODE: Z13.820 OSTEOPOROSIS Height: 62.4 Weight: 218 FRAX RISK QUESTIONS: Secondary Osteoporosis: YES 3. Menopause before 45: YES, AT 39 RISK FACTORS HISTORY OF: Family History of Osteoporosis: UNKNOWN Postmenopausal woman: YES, AT AGE 39 Take estrogen and/or progesterone medications: BCPs FOR 10 YRS IN THE PAST Hyperparathyroidism: YES, WITH HYPERCALCEMIA MEDICATIONS: Additional Medications: BP MEDS, TUMS PRN, ONE A DAY MULTIVITAMIN Additional History: HYPERTENSION, HYPERCALCEMIA EXAM MEASUREMENTS: Bone mineral densitometry was performed using the [employer] System. Bone mineral density as measured about the Lumbar spine is: ----- L1-L4(G/cm2): 1.149 T Score Values are as follows: ----- L1: -0.5 ----- L2: -0.4 ----- L3: -0.1 ----- L4: -0.2 ----- L1-L4: -0.03 Bone mineral density has: Increased 6.5% SINCE 07.25.2015 STUDY Bone mineral density about the R hip (g/cm2): 1.136 Bone mineral density about the L hip (g/cm2): 1.208 T Score values are as follows: -----R Neck: 1.7 -----L Neck: 1.3 -----R Total: 1.0 -----L Total: 1.6 Bone mineral density has: Increased 10.0 % SINCE 07.25.2015 SCAN FRAX%s: THERE IS A 5.0% CHANCE FOR A MAJOR OSTEOPOROTIC FX AND A 0.2% FOR HIP.....PROBABILITY OF FX IN 10 YRS TIME IMPRESSION: Normal (Values between +1 and -1 indicate normal bone mass). Consider repeating this study in 5 year s or sooner if there is some new clinical indication. NOTE: T-SCORE=SD OF THE YOUNG ADULT MEAN.
--- NOTE | 2018-05-07 10:00 | MM ---
Reason for exam: screening (asymptomatic). Last mammogram was performed 1 year and 3 months ago. History: Patient is postmenopausal. Took hormonal contraceptives for 10 years. Physical Findings: A clinical breast exam by your physician is recommended on an annual basis and results should be correlated with mammographic findings. MG 3D Screening Mammo W/Cad Bilateral CC and MLO view(s) were taken. Prior study comparison: January 21, 2017, bilateral MG 3d screening mammo w/cad. July 25, 2015, bilateral MG 3d screening mammo w/cad. There are scattered fibroglandular densities. No significant changes when compared with prior studies. ASSESSMENT: Negative, BI-RAD 1 RECOMMENDATION: Routine screening mammogram of both breasts in 1 year.
== END ==
LOC: RADMAMWWP 12:39
PROVIDERS: ATTEND Family Medicine
DX: Z12.31 Encounter for screening mammogram for malignant neoplasm of breast (principal); Z13.820 Encounter for screening for osteoporosis
CPT/HCPCS: 77063; 77067; 77080

== ENCOUNTER 2018-11-18 08:41 | Emergency (ER) | payer MEDICARE, OTHER ==
[2018-11-18 09:18] VITALS: RESP 16
[2018-11-18] MEDS ORDERED: LORazepam 2 MG/ML INJ IV STA (09:34)
--- NOTE | 2018-11-18 09:56 | XR ---
EXAMINATION TYPE: XR chest 2V DATE OF EXAM: 11/18/2018 COMPARISON: 08/09/2016, 05/25/2014 TECHNIQUE: PA and lateral views submitted. HISTORY: Size is mildly prominent but stable with no overt failure. Large calcification in the soft t issues adjacent to lateral left rib cage. FINDINGS: The lungs are clear and there is no pneumothorax, pleural effusion, or focal pneumonia. The heart s ize is mildly prominent but stable with no overt failure. Large calcification in the soft tissues adj acent to lateral left rib cage is stable dating back to 05/25/2014. Diffuse osteopenia. Hypertrophic c hange of the vertebral column with degenerative disc disease. IMPRESSION: 1. No acute process.
--- NOTE | 2018-11-18 10:40 | ED ---
General Adult HPI - General Chief complaint: Recheck/Abnormal Lab/Rx Stated complaint: High BP Time Seen by Provider: 11/18/18 08:50 Source: patient Mode of arrival: ambulatory Limitations: no limitations - History of Present Illness Initial comments: The patient is a 73-year-old female with past medical history of hypertension who presents to the emergency room with reported asymptomatic hypertension. The patient reports that she awoke from sleep around 2 AM this morning. She attempted to ambulate to the bathroom and states she felt as if her legs were moving faster than her body was. She felt as if she couldn't keep up and that she was going to fall. She then sat in her chair. She took her blood pressure measurement and noted that her blood pressure was very high. She called EMS and was sent into [facility]. She had laboratory studies and a CT of her brain performed at their hospital. She was given an extra dose of her Lopr essor. Normally takes 50 mg the morning and 25 mg at night. Also has amlodipine at home to take when needed. She was then discharged home and was told to follow-up with her primary care physician as she recently has been dealing with high blood pressures issues and her primary care physician have discussed changing her medications. The patient reports that she got home and she felt improved however she did take her blood pressure and noted it was still high. She had a friend drive her into the emergency department for further evaluation. She denies any headaches or visual changes. No chest pain or shortness of breath. Denies any abdominal pain. No changes in her bowel or bladder habits. She denies any unilateral numbness or weakness. No syncope or presyncope. The patient does report feeling very anxious her blood pressure has been high. There are no other alleviating, precipitating or modifying factors - Related Data Home Medications Medication Instructions Recorded Confirmed Metoprolol Tartrate 25 mg PO HS 02/22/15 11/18/18 Metoprolol Tartrate [Lopressor] 50 mg PO DAILY 11/18/18 11/18/18 Multivitamins, Thera [Multivitamin 1 tab PO DAILY 11/18/18 11/18/18 (formulary)] amLODIPine [Norvasc] 2.5 mg PO DAILY PRN 11/18/18 11/18/18 Previous Rx's Medication Instructions Recorded ALPRAZolam [Xanax] 0.25 mg PO Q8H PRN 3 Days #9 tab 11/18/18 Allergies Allergy/AdvReac Type Severity Reaction Status Date / Time lisinopril Allergy Unknown Verified 11/18/18 09:07 Review of Systems ROS Statement: Those systems with pertinent positive or pertinent negative responses have been documented in the HPI. ROS Other: All systems not noted in ROS Statement are negative. Past Medical History Past Medical History: Hypertension Additional Past Medical History / Comment(s): 02/24/15 Pt admitted to floor s/p acromioplasty excision dista clavicle rotator cuff repair L shoulder. Other HX: HYPERCALCEMIA, STATES ASTHMA SYMPTOMS INDUCED FROM CERTAIN FOODS, HX OF LEFT VENTRICULAR TACHYCARDIA History of Any Multi-Drug Resistant Organisms: None Reported Past Surgical History: Cardiac Ablation, Section, Heart Catheterization, Orthopedic Surgery Additional Past Surgical History / Comment(s): 02/24/15 Acromioplasty excision distal clavicle rotator cuff repair L shoulder. Othe surgeries: C-SEC X5, parathyroid surgery Past Anesthesia/Blood Transfusion Reactions: Postoperative Nausea & Vomiting (PONV) Past Psychological History: No Psychological Hx Reported Smoking Status: Never smoker Past Alcohol Use History: None Reported Past Drug Use History: None Reported - Past Family History Father Family Medical History: Cancer Additional Family Medical History / Comment(s): SKIN CANCER Mother Family Medical History: No Reported History Sister(s) Additional Family Medical History / Comment(s): SKIN CANCER General Exam Limitations: no limitations General appearance: alert, in no apparent distress Head exam: Present: atraumatic, normocephalic, normal inspection Eye exam: Present: normal appearance, PERRL, EOMI. Absent: scleral icterus, conjunctival injection, periorbital swelling ENT exam: Present: normal exam, mucous membranes moist Neck exam: Present: normal inspection. Absent: tenderness, meningismus, l ymphadenopathy Respiratory exam: Present: normal lung sounds bilaterally. Absent: respiratory distress, wheezes, rales, rhonchi, stridor Cardiovascular Exam: Present: regular rate, normal rhythm, normal heart sounds. Absent: systolic murmur, diastolic murmur, rubs, gallop, clicks GI/Abdominal exam: Present: soft, normal bowel sounds. Absent: distended, tenderness, guarding, rebound, rigid Extremities exam: Present: normal inspection, full ROM, normal capillary refill. Absent: tenderness, pedal edema, joint swelling, calf tenderness Back exam: Present: normal inspection Neurological exam: Present: alert, oriented X3, CN II-XII intact Psychiatric exam: Present: normal affect, normal mood Skin exam: Present: warm, dry, intact, normal color. Absent: rash Course Vital Signs 11/18/18 11/18/18 11/18/18 08:49 09:17 11:12 Temperature 97.9 F 97.6 F Pulse Rate 76 70 87 Respiratory 18 16 16 Rate Blood Pressure 180/82 179/94 149/67 O2 Sat by Pulse 95 95 99 Oximetry EKG Findings - EKG Comments: EKG Findings:: EKG demonstrates a normal sinus rhythm with a ventricular rate of 73. RI interval 186. QRS 86. QTC 440. There is J-point elevation in leads V2 and V3. There are scooping of the ST segment in leads 1 and aVL. This is compared to previous EKG and appears the same as 2017 Medical Decision Making - Medical Decision Making Upon arrival the patient is placed in room 6. Thorough history and physical exam was performed. I did request laboratory studies from [facility]. Laboratory studies were conducted and the patient had a CT of her brain. Lab studies shows a white blood cell count of 5.5, hemoglobin 14.1, hematocrit 43.5 [address] platelets of [address]. [address] brain demonstrated mild cerebral atrophy. Troponin was negative. Mag 2.1. CK 41 area and sodium 141, potassium 2.8, cord 101, glucose 119, BUN 12, creatinine 0.6. I did request a chest x-ray for which the patient did agree to. Chest x-ray demonstrates no acute findings. I did perform my own 12-lead on the patient which demonstrated a normal sinus rhythm. I did offer to provide the patient something for anxiety. She was given 0.5 of Ativan. She is reevaluated and states that she feels markedly improved. Her blood pressures improved to 150 systolic. I discussed diagnosis, differential and treatment options. The patient is requesting something for anxiety at home. I did discuss side effect profile. Informed her that I will only provide her with a few tablets as I do want her primary care physician to evaluate whether she should be on this medication long-term. The patient understood this. She is to only take it if she is not working or driving. The patient understood. She is to call her primary care physician to discuss blood pressure medication changes. The patient was discharged home in stable condition Disposition Clinical Impression: Hypertension Disposition: HOME SELF-CARE Condition: Stable Instructions (If sedation given, give patient instructions): Chronic Hypertension (ED) Additional Instructions: Please call your campaign analyst and make an appointment to be seen within the next week. You should follow up with your primary care physician within 2-4 days regarding your high blood pressure. Take the prescribed medications only as directed and do not work or drive while taking them. Tell your primary care doctor that you given the prescription. Return to the emergency room for any new or worsening symptoms Prescriptions: ALPRAZolam [Xanax] 0.25 mg PO Q8H PRN 3 Days #9 tab PRN Reason: Anxiety Is patient prescribed a controlled substance at d/c from ED?: Yes When asked, does pt state using other controlled substances?: No If prescribed controlled substance>3 days was MAPS reviewed?: Prescribed <3 Days Referrals: Bia Alberto MD [Primary Care Provider] - 1-2 days Time of Disposition: 11:02
[2018-11-18 11:14] VITALS: BP 149/67; PULSE 87; TEMP 97.6
== END 2018-11-18 11:14 | disposition home or self-care (01) ==
LOC: EC 08:41
DX: I10 Essential (primary) hypertension (principal); G31.9 Degenerative disease of nervous system, unspecified; Z79.899 Other long term (current) drug therapy; Z88.8 Allergy status to other drugs, medicaments and biological substances
CPT/HCPCS: 71046; 99283; 96374; J2060

== ENCOUNTER 2018-12-06 14:18 | Emergency (ER) | payer MEDICARE, OTHER ==
[2018-12-06 14:41] VITALS: RESP 18
[2018-12-06] MEDS ORDERED: SODIUM CHLORIDE 0.9% 1,000 ML IV STA ×2 (15:22)
--- NOTE | 2018-12-06 16:04 | ED ---
Recheck HPI - General Source: patient, RN notes reviewed, old records reviewed Mode of arrival: ambulatory Limitations: no limitations <Miri Mtoa - Last Filed: 12/07/18 07:19> <Daniela Carney - Last Filed: 12/08/18 16:49> - General Chief Complaint: Recheck/Abnormal Lab/Rx Stated Complaint: Hypertension Time Seen by Provider: 12/06/18 15:10 - History of Present Illness Initial Comments: This Patient is a 73-year-old female, she presents emergency department today concern for fluctuation in her blood pressure. She reports that she was increased on her Lopressor by her primary care doctor within this month. She reports that sometime her blood pressure continues to fluctuate. She does question of the could be slightly related to anxiety. Patient was seen in emergency department on November 18, and diagnosis of anxiety that time patient's been using Xanax as needed since then. Patient states that upon arriving to the emergency department her blood pressure has returned. Patient states that since the past few days and her blood pressure seems to be elevated she's feels "off". Patient states that she feels increased pressure in her neck or arms. Patient states that she has had no specific headache, generalized weakness or focal neurological deficits. She denies any chest pain at this time. Denies any shortness of breath. (Miri Mota) - Related Data Home Medications Medication Instructions Recorded Confirmed Metoprolol Tartrate 25 mg PO HS 02/22/15 12/06/18 Metoprolol Tartrate [Lopressor] 50 mg PO DAILY 11/18/18 12/06/18 Multivitamins, Thera [Multivitamin 1 tab PO DAILY 11/18/18 12/06/18 (formulary)] amLODIPine [Norvasc] 2.5 mg PO DAILY PRN 11/18/18 12/06/18 Acetaminophen Tab [Tylenol Tab] 500 mg PO Q6HR PRN 12/06/18 12/06/18 Previous Rx's Medication Instructions Recorded ALPRAZolam [Xanax] 0.25 mg PO Q8H PRN 3 Days #9 tab 11/18/18 Allergies Allergy/AdvReac Type Severity Reaction Status Date / Time lisinopril Allergy Unknown Verified 12/06/18 15:10 Review of Systems ROS Other: All systems not noted in ROS Statement are negative. <Miri Mota - Last Filed: 12/07/18 07:19> ROS Other: All systems not noted in ROS Statement are negative. <Daniela Carney - Last Filed: 12/08/18 16:49> ROS Statement: Those systems with pertinent positive or pertinent negative responses have been documented in the HPI. Past Medical History Past Medical History: Asthma, Hypertension Additional Past Medical History / Comment(s): Other HX: HYPERCALCEMIA, HX OF LEFT VENTRICULAR TACHYCARDIA History of Any Multi-Drug Resistant Organisms: None Reported Past Surgical History: Cardiac Ablation, Section, Heart Catheterization, Orthopedic Surgery Additional Past Surgical History / Comment(s): 02/24/15 Acromioplasty excision distal clavicle rotator cuff repair L shoulder. Othe surgeries: C-SEC X5, parathyroid surgery Past Anesthesia/Blood Transfusion Reactions: Postoperative Nausea & Vomiting (PONV) Past Psychological History: No Psychological Hx Reported Smoking Status: Never smoker Past Alcohol Use History: None Reported Past Drug Use History: None Reported - Past Family History Father Family Medical History: Cancer Additional Family Medical History / Comment(s): SKIN CANCER Mother Family Medical History: No Reported History Sister(s) Additional Family Medical History / Comment(s): SKIN CANCER <Miri Mota - Last Filed: 12/07/18 07:19> General Exam Limitations: no limitations Head exam: Present: atraumatic, normocephalic, normal inspection Eye exam: Present: normal appearance, PERRL, EOMI. Absent: scleral icterus, conjunctival injection, periorbital swelling ENT exam: Present: normal exam, mucous membranes moist Neck exam: Present: normal inspection. Absent: tenderness, meningismus, lymphadenopathy Respiratory exam: Present: normal lung sounds bilaterally. Absent: respiratory distress, wheezes, rales, rhonchi, stridor Cardiovascular Exam: Present: regular rate, normal rhythm, normal heart sounds. Absent: systolic murmur, diastolic murmur, rubs, gallop, clicks GI/Abdominal exam: Present: soft, normal bowel sounds. Absent: distended, tenderness, guarding, rebound, rigid Extremities exam: Present: normal inspection, full ROM, normal capillary refill. Absent: tenderness, pedal edema, joint swelling, calf tenderness Back exam: Present: normal inspection Neurological exam: Present: alert, oriented X3, CN II-XII intact <Miri Mota - Last Filed: 12/07/18 07:19> - General Exam Comments Initial Comments: This is a 73-year-old female. Mildly anxious. Otherwise appears in no distress. BP 143/89. (Miri Mota) Course Vital Signs 12/06/18 12/06/18 12/06/18 14:38 17:51 19:55 Temperature 97.9 F 98.4 F Pulse Rate 79 74 81 Respiratory 18 18 18 Rate Blood Pressure 172/80 157/73 169/81 O2 Sat by Pulse 97 97 95 Oximetry Medical Decision Making - Lab Data Result diagrams: 12/06/18 16:01 - Radiology Data Radiology results: report reviewed <Miri Mota - Last Filed: 12/07/18 07:19> - Lab Data Result diagrams: 12/06/18 16:01 <Daniela Carney - Last Filed: 12/08/18 16:49> - Medical Decision Making Asians a 73-year-old female. She presents today for labile blood pressure. Patient reports having x-rays his blood pressure about 2 weeks. She saw her PCP and increase her Lopressor twice a day. Patient at this time complains of no significant symptoms and her blood pressure. She also appears quite anxious. discussed with Dr. Carney about the Patient, whom had seen her earlier this month. Patient's case transferred to Dr. Carney at 6:30 PM. (Emmie Motaily) I was available for consultation in the emergency department. The history and physical exam were done by the midlevel provider. I was consulted for this patients care. I reviewed the case with the midlevel provider and based on their presentation of the patient, I agree with the assessment, medical decision making and plan of care as documented. I evaluated the patient. She is currently symptoms free. I paged her mutuel department manager three times to discuss the patients care with him however he does not call back. I directed her to follow up in office. She is given referrals for a candy department manager who may be able to assist with her hypertension as she feels her mutuel department manager has not been able to help. I instructed her to keep well maintained logs of her blood pressure readi ngs. She was agreeable to the plan and discharged home in stable condition. Chart was dictated using Dragon dictation software. Attempts were made to correct any dictation errors however some typographical errors may persist. (Daniela Carney) - Lab Data Lab Results 12/06/18 12/06/18 12/06/18 Range/Units 16:01 16:01 16:01 PT 10.1 (9.0-12.0) sec INR 0.9 (<1.2) APTT 20.7 L (22.0-30.0) sec Sodium 141 (137-145) mmol/L Potassium 3.9 (3.5-5.1) mmol/L Chloride 106 (98-107) mmol/L Carbon Dioxide 28 (22-30) mmol/L Anion Gap 7 mmol/L BUN 13 (7-17) mg/dL Creatinine 0.59 (0.52-1.04) mg/dL Est GFR (CKD-EPI)AfAm >90 (>60 ml/min/1.73 sqM) Est GFR (CKD-EPI)NonAf >90 (>60 ml/min/1.73 sqM) Glucose 130 H (74-99) mg/dL Calcium 10.1 (8.4-10.2) mg/dL Magnesium 2.0 (1.6-2.3) mg/dL Total Bilirubin 0.4 (0.2-1.3) mg/dL AST 24 (14-36) U/L ALT 26 (9-52) U/L Alkaline Phosphatase 71 (38-126) U/L Troponin I <0.012 (0.000-0.034) ng/mL NT-Pro-B Natriuret Pep pg/mL Total Protein 7.1 (6.3-8.2) g/dL Albumin 3.9 (3.5-5.0) g/dL 12/06/18 Range/Units 16:01 PT (9.0-12.0) sec INR (<1.2) APTT (22.0-30.0) sec Sodium (137-145) mmol/L Potassium (3.5-5.1) mmol/L Chloride (98-107) mmol/L Carbon Dioxide (22-30) mmol/L Anion Gap mmol/L BUN (7-17) mg/dL Creatinine (0.52-1.04) mg/dL Est GFR (CKD-EPI)AfAm (>60 ml/min/1.73 sqM) Est GFR (CKD-EPI)NonAf (>60 ml/min/1.73 sqM) Glucose (74-99) mg/dL Calcium (8.4-10.2) mg/dL Magnesium (1.6-2.3) mg/dL Total Bilirubin (0.2-1.3) mg/dL AST (14-36) U/L ALT (9-52) U/L Alkaline Phosphatase (38-126) U/L Troponin I (0.000-0.034) ng/mL NT-Pro-B Natriuret Pep 137 pg/mL Total Protein (6.3-8.2) g/dL Albumin (3.5-5.0) g/dL 12/06/18 16:28 EKG shows normal sinus rhythm, left ventricular hypertrophy with early repolarization abnormality. Abnormal EKG. Ventricular rate 67 beats.. Is 1603 care physician a sensory QTc is 398/420 ms. (Miri Mota) - Radiology Data Normal chest x-ray. No acute changes. (Miri Mota) Disposition <Miri Mota - Last Filed: 12/07/18 07:19> Is patient prescribed a controlled substance at d/c from ED?: No Time of Disposition: 19:42 <Daniela Carney - Last Filed: 12/08/18 16:49> Clinical Impression: Hypertension Disposition: HOME SELF-CARE Condition: Stable Instructions (If sedation given, give patient instructions): Chronic Hypertension (ED) Additional Instructions: Please take your medications as directed. Follow-up with your mutuel department manager for your high blood pressure. You should also see a candy department manager. Return to the emergency room for any new or worsening symptoms Referrals: Bia Alberto MD [Primary Care Provider] - 1-2 days
[2018-12-06 16:19] LABS: ALT 26 U/L (9-52); AST 24 U/L (14-36); African American GFR (CKD) >90 (>60 ml/min/1.73 sqM); Albumin 3.9 g/dL (3.5-5.0); Alkaline Phosphatase 71 U/L (38-126); Anion Gap 7 mmol/L; Blood Urea Nitrogen 13 mg/dL (7-17); Calcium 10.1 mg/dL (8.4-10.2); Carbon Dioxide 28 mmol/L (22-30); Chloride 106 mmol/L (98-107); Glucose 130 mg/dL (74-99); Potassium 3.9 mmol/L (3.5-5.1); Sodium 141 mmol/L (137-145); Total Bilirubin 0.4 mg/dL (0.2-1.3); Total Protein 7.1 g/dL (6.3-8.2)
--- NOTE | 2018-12-06 16:29 | XR ---
EXAMINATION TYPE: XR chest 2V DATE OF EXAM: 12/06/2018 COMPARISON: 11/18/2018 HISTORY: Chest pain TECHNIQUE: Frontal and lateral views of the chest are obtained. FINDINGS: There is no heart failure nor confluent pneumonic infiltrate. There is densely calcified l eft axillary lymph node. Thoracic aorta is atheromatous. There is no pleural effusion. Bony thorax is intact. IMPRESSION: No active cardiopulmonary disease. Normal heart. No change.
[2018-12-06 16:35] LABS: INR 0.9 (<1.2); Partial Thromboplastin Time 20.7 sec (22.0-30.0); Prothrombin Time 10.1 sec (9.0-12.0)
[2018-12-06 19:57] VITALS: BP 169/81; PULSE 81; TEMP 98.4
== END 2018-12-06 20:03 | disposition home or self-care (01) ==
LOC: EC 14:18
DX: I10 Essential (primary) hypertension (principal); Z53.20 Procedure and treatment not carried out because of patient's decision for unspecified reasons; Z79.899 Other long term (current) drug therapy; Z88.8 Allergy status to other drugs, medicaments and biological substances; Z86.79 Personal history of other diseases of the circulatory system; Z95.5 Presence of coronary angioplasty implant and graft
CPT/HCPCS: 36415; 71046; 80053; 83735; 83880; 84484; 85610; 85730; 93005; 99284

== ENCOUNTER → 2019-08-09 | Outpatient (CLI) | payer MEDICARE, OTHER ==
--- NOTE | 2019-08-10 10:17 | MM ---
Reason for exam: screening (asymptomatic). Last mammogram was performed 1 year and 3 months ago. History: Patient is postmenopausal. Took hormonal contraceptives for 10 years. Physical Findings: A clinical breast exam by your physician is recommended on an annual basis and results should be correlated with mammographic findings. MG 3D Screening Mammo W/Cad Bilateral CC and MLO view(s) were taken. Prior study comparison: May 05, 2018, bilateral MG 3d screening mammo w/cad. January 21, 2017, bilateral MG 3d screening mammo w/cad. There are scattered fibroglandular densities. No significant changes when compared with prior studies. ASSESSMENT: Negative, BI-RAD 1 RECOMMENDATION: Routine screening mammogram of both breasts in 1 year.
== END | disposition home or self-care (01) ==
LOC: RADMAMWWP 13:43
PROVIDERS: ATTEND Family Medicine
DX: Z12.31 Encounter for screening mammogram for malignant neoplasm of breast (principal)
CPT/HCPCS: 77063; 77067

== ENCOUNTER → 2020-10-09 | Outpatient (CLI) | payer MEDICARE, OTHER ==
--- NOTE | 2020-10-11 11:13 | MM ---
Reason for exam: screening (asymptomatic). Last mammogram was performed 1 year and 2 months ago. History: Patient is postmenopausal. Family history of breast cancer in daughter at age 52. Took hormonal contraceptives for 10 years. Physical Findings: A clinical breast exam by your physician is recommended on an annual basis and results should be correlated with mammographic findings. MG 3D Screening Mammo W/Cad Bilateral CC and MLO view(s) were taken. Prior study comparison: August 09, 2019, bilateral MG 3d screening mammo w/cad. May 05, 2018, bilateral MG 3d screening mammo w/cad. There are scattered fibroglandular densities. No significant changes when compared with prior studies. ASSESSMENT: Benign, BI-RAD 2 RECOMMENDATION: Routine screening mammogram of both breasts in 1 year.
== END | disposition home or self-care (01) ==
LOC: RADMAMWWP 16:04
PROVIDERS: ATTEND Family Medicine
DX: Z12.31 Encounter for screening mammogram for malignant neoplasm of breast (principal); Z78.0 Asymptomatic menopausal state; Z80.3 Family history of malignant neoplasm of breast
CPT/HCPCS: 77063; 77067

== ENCOUNTER → 2021-11-13 | Outpatient (CLI) | payer MEDICARE, OTHER ==
--- NOTE | 2021-11-13 07:51 | US ---
EXAMINATION TYPE: US gallbladder DATE OF EXAM: 11/13/2021 COMPARISON: NONE CLINICAL HISTORY: K30 Functional dyspepsia, R10.10 Abd pain. TECHNIQUE: Multiple sonographic images of the right upper quadrant are obtained. FINDINGS: EXAM MEASUREMENTS: Liver Length: 16.0 cm Gallbladder Wall: 0.3 cm CBD: 0.3 cm Right Kidney: 10.0 x 4.1 x 4.8 cm SECURITY INCIDENT RESPONSE SPECIALIST NOTES: Patient of large body habitus with extensive midline bowel gas, technically difficult limited study. Pancreas: Obscured by bowel gas Liver: Increased attenuation Gallbladder: cholelithiasis Evidence for sonographic Jasmine's sign: no CBD: wnl Right Kidney: wnl Suboptimal evaluation of pancreas on initial images. Visualized liver heterogeneous hyperechoic witho ut focal mass or ductal dilatation. No surrounding ascites. No right-sided hydronephrosis. Single sha dowing gallstone in gallbladder. No pericholecystic fluid or abnormal gallbladder wall thickening. So nographic Jasmine sign negative. Common bile duct measures within normal limits. IMPRESSION: Suboptimal study. Gallstone without ultrasound evidence for acute cholecystitis. There is fatty infiltrated hepatocellular disease thought Present.
== END | disposition home or self-care (01) ==
LOC: RADUSWWP 06:56
PROVIDERS: ATTEND Family Medicine
DX: K80.20 Calculus of gallbladder without cholecystitis without obstruction (principal); K76.0 Fatty (change of) liver, not elsewhere classified
CPT/HCPCS: 76705

== ENCOUNTER → 2022-02-08 | Outpatient (CLI) | payer MEDICARE, OTHER ==
--- NOTE | 2022-02-08 15:59 | BD ---
EXAMINATION TYPE: Axial Bone Density DATE OF EXAM: 02/08/2022 COMPARISON: 07/25/2015 CLINICAL HISTORY: 76 years year old Female. ICD-10 CODE: Z78.0 Post menopausal Height: 62.2 IN Weight: 208 LBS FRAX RISK QUESTIONS: Secondary Osteoporosis: 3. Menopause before 45: AGE 44 RISK FACTORS HISTORY OF: Active: YES Diet low in dairy products/other sources of calcium: YES Postmenopausal woman: AGE 44 MEDICATIONS: Additional Medications: MULTI VIT, TOPROL, WATER PILL EXAM MEASUREMENTS: Bone mineral densitometry was performed using the [employer] System. Bone mineral density as measured about the Lumbar spine is: ----- L1-L4(G/cm2): 1.108 T Score Values are as follows: ----- L1: -1.3 ----- L2: -1.0 ----- L3: -0.5 ----- L4: 0.1 ----- L1-L4: -0.6 Bone mineral density has: Increased 4.6% since study of: 07/25/2015 Bone mineral density about the R hip (g/cm2): 1.228 Bone mineral density about the L hip (g/cm2): 1.091 T Score values are as follows: -----R Neck: 1.4 -----L Neck: 0.4 -----R Total: 0.5 -----L Total: 0.5 Bone mineral density has: Increased 0.6% since study of: 07/25/2015 FRAX%s: The graph provided illustrates a 6.8 chance for a major osteoporotic fx and a 0.5 chance for the hips probability for fx in 10 years time. IMPRESSION: Osteopenia (T Score between -2.5 and -1). There is slightly increased risk of fracture and the patient may be considered for treatment. Re-Screen 2-5 years. NOTE: T-SCORE=SD OF THE YOUNG ADULT MEAN.
--- NOTE | 2022-02-11 18:40 | MM ---
Reason for Exam: Screening (asymptomatic). Last mammogram was performed 1 year(s) and 4 month(s) ago. Patient History: Menarche at age 11. First Full-Term at age 21. Postmenopausal. Patient has history of breast feeding. Patient used Hormonal Contraceptives for 10 years. Daughter had breast cancer, age 52. Risk Values: Tiffanie 5 year model risk: 3.3%. NCI Lifetime model risk: 6.3%. Prior Study Comparison: 05/05/2018 Bilateral Screening Mammogram, LOCATED WITHIN [facility]. 08/09/2019 Bilateral Screening Mammogram, LOCATED WITHIN [facility]. 10/09/2020 Bilateral Screening Mammogram, LOCATED WITHIN [facility]. Tissue Density: There are scattered fibroglandular densities. Findings: Analyzed By CAD. There is no suspicious group of microcalcifications or new suspicious mass in either breast. Overall Assessment: Negative, BI-RAD 1 Management: Screening Mammogram of both breasts in 1 year. 1. Patient should continue monthly self breast exams. 2. A clinical breast exam by your physician is recommended on an annual basis. 3. This exam should not preclude additional follow-up of suspicious palpable abnormalities. Electronically signed and approved by: Birgit Pandey M.D. Radiologist
== END | disposition home or self-care (01) ==
LOC: RADMAMWWP 14:24
PROVIDERS: ATTEND Family Medicine
DX: Z12.31 Encounter for screening mammogram for malignant neoplasm of breast (principal); R92.8 Other abnormal and inconclusive findings on diagnostic imaging of breast; M85.89 Other specified disorders of bone density and structure, multiple sites; Z78.0 Asymptomatic menopausal state; Z80.3 Family history of malignant neoplasm of breast
CPT/HCPCS: 77063; 77067; 77080

== ENCOUNTER 2022-02-21 06:33 | Day surgery (SDC) | payer MEDICARE, OTHER ==
[~2022-02-21 06:33] MED LIST: ALPRAZolam 0.25 MG TAB PO PRN; ALPRAZolam 0.5 MG TAB PO PRN; ASPIRIN 325 MG TAB PO STA; NITROGLYCERIN SL TABS 0.4 MG TAB SUBLINGUAL PRN; SODIUM CHLORIDE 0.9% 1,000 ML in EMPTY BAG 1 BAG IV SCH
[2022-02-21] MEDS ORDERED: SODIUM CHLORIDE 0.9% 1,000 ML IV ONE (06:48)
[2022-02-21 07:20] VITALS: RESP 16; TEMP 98
[2022-02-21] MEDS ORDERED: fentaNYL (PF) 50 MCG/1 ML VIAL IVP ONE (07:38)
[2022-02-21] MEDS ORDERED: LIDOCAINE 1% INJ 10MG/ML (5 ML VIAL-PF) SQ ONE (07:42)
[2022-02-21] MEDS ORDERED: VERAPAMIL SYRINGE (5 MG/10 ML) INTRAARTER ONE (07:45)
[2022-02-21] MEDS ORDERED: HEPARIN SODIUM 1,000 UN/ML (10ML VL) IV ONE (07:48)
[2022-02-21] MEDS ORDERED: IOPAMIDOL-370 125ML BTL INJ ONE (07:57)
[2022-02-21] MEDS ORDERED: RX INFO: IV CONTRAST WAS GIVEN 1 EACH MISC MISCELLANE PRN (08:05)
--- NOTE | 2022-02-21 08:11 | P.CARDCATH ---
Date of Procedure: 02/21/22 Description of Procedure: Cardiac Catheterization: The patient is a 76-year-old female with a history of hypertension, who has been complaining of abdominal and chest discomfort and is being evaluated to undergo cholecystectomy, had an abnormal MPI. Recommendations were made regarding cardiac catheterization, the risks and the complications were discussed with the patient who is in full understanding and agreement. Procedure Description: Patient was brought to pharmacy laboratory technician in fasting semi-sedated state after receiving Fentanyl and Benadryl achieiving moderate conscious sedated state. Using Xylocaine Anesthesia and Seldinger technique, a 6-[place]icaraguan sheath was introduced in the right radial artery . Subsequently, selective coronary angiography was performed using a 5-[place]ag[place] 3.5 bend Tony catheter. Multiple views of the coronary artery including hemiaxial views were obtained. The 5-[place]icaraguan pigtail catheter was used to cross the aortic valve and LVEDP was calculated. Following that, catheter and sheath were removed. Hemostasis was obtained with deployment of TR band . There was no immediate complication. Patient was returned to room in stable condition. Of note, the patient received a total of 5000 units of intravenous heparin as well as intra-arterial verapamil. Findings: Left main: This is a large size vessel, bifurcating into LAD and left circumflex, left main has no high-grade stenosis LAD: This is a large size vessel, tortuous, giving rise to 2 diagonal branch. The LAD branches have no evidence of high-grade stenosis Left circumflex: This is a nondominant vessel, small in caliber giving rise to one obtuse marginal branch that has no evidence of high-grade stenosis RCA: This is a large dominant vessel bifurcating into PDA and PLV, the right coronary artery and its branches have no evidence of high-grade stenosis Left Ventriculogram: Not performed Hemodynamics: There is no gradient across the aortic valve, LVEDP was 12-14 mmHg Conclusion: 1. Normal coronary arteries 2. Right dominance 3. Normal LVEDP Recommendations: I see no evidence of significant obstructive disease. The patient should be stable to proceed with her scheduled cholecystectomy. The findings and the recommendations were discussed with the patient and the family and they were in full understanding and agreement. Duration of sedation is 20 minutes.
[2022-02-21] MEDS ORDERED: SODIUM CHLORIDE 0.9% 1,000 ML IV SCH (08:15)
[2022-02-21] MEDS ORDERED: MULTIVITAMINS, THERA 1 EACH TAB PO SCH (09:00)
[2022-02-21 12:12] VITALS: BP 143/65; PULSE 69
[2022-02-22] MEDS ORDERED: CHOLECALCIFEROL 25 MCG (1000 IU) TABLET PO SCH (09:00)
[2022-02-22] MEDS ORDERED: METOPROLOL TARTRATE 50 MG TAB PO SCH (09:00)
[2022-02-22] MEDS ORDERED: MULTIVITAMINS, THERA 1 EACH TAB PO SCH (09:00)
[2022-02-22] MEDS ORDERED: ASPIRIN 81 MG PO SCH (09:00)
[2022-02-22] MEDS ORDERED: hydroCHLOROthiazide 12.5 MG CAP PO SCH (09:00)
== END 2022-02-21 12:03 | disposition home or self-care (01) ==
LOC: CATHCVL 06:33
PROVIDERS: ATTEND Internal Medicine Interventional Cardiology
DX: R94.39 Abnormal result of other cardiovascular function study (principal); I10 Essential (primary) hypertension; Z88.8 Allergy status to other drugs, medicaments and biological substances; Z79.899 Other long term (current) drug therapy; Z87.891 Personal history of nicotine dependence; Z98.890 Other specified postprocedural states
CPT/HCPCS: 93458; C1769 ×2; C1894; J2001; J1644; Q9967; J3010

== ENCOUNTER 2022-02-28 10:38 | Day surgery (SDC) | payer MEDICARE, OTHER ==
[~2022-02-28 10:38] MED LIST changes: +ACETAMINOPHEN TAB 500 MG TAB PO PRN; -ALPRAZolam 0.25 MG TAB PO PRN; -ALPRAZolam 0.5 MG TAB PO PRN; -ASPIRIN 325 MG TAB PO STA; +DEXAMETHASONE SOD PHOSPHATE 4 MG/ML 1 ML VIAL IV ONE; +HEPARIN SODIUM,PORCINE/PF 5,000 UNIT/0.5 ML SYRINGE SQ PRN; +LACTATED RINGERS 1,000 ML IV SCH; +LIDOCAINE 1% (10MG/ML) FOR IV START INTRADERMA PRN; +MIDAZOLAM 2 MG/2 ML VIAL IV PRN; -NITROGLYCERIN SL TABS 0.4 MG TAB SUBLINGUAL PRN; -SODIUM CHLORIDE 0.9% 1,000 ML in EMPTY BAG 1 BAG IV SCH
[2022-02-28] MEDS ORDERED: LACTATED RINGERS 1,000 ML IV ONE (11:00)
[2022-02-28] MEDS: ONDANSETRON 4 MG/2 ML VIAL IVP ONE ×2 (11:10→15:35)
[2022-02-28] MEDS ORDERED: BUPIVACAIN-EPI 0.25%-1:200,000 30 ML VIAL SQ ONE ×2 (12:36→13:02)
[2022-02-28] MEDS ORDERED: NEOSTIGMINE 1 MG/ML 10 ML VIAL ONE (12:40)
[2022-02-28] MEDS ORDERED: ROCURONIUM 10 MG/ML (5 ML VIAL) IV ONE (12:40)
[2022-02-28] MEDS ORDERED: PROPOFOL 10 MG/ML 20 ML VIAL IV ONE (12:40)
[2022-02-28] MEDS ORDERED: SUGAMMADEX SODIUM 200 MG/2 ML SDV IV ONE (12:40)
[2022-02-28] MEDS ORDERED: fentaNYL (PF) 50 MCG/ML 2 ML AMP ONE (12:40)
[2022-02-28] MEDS ORDERED: KETOROLAC 15 MG/ML 1 ML VIAL ONE (12:40)
[2022-02-28] MEDS ORDERED: LIDOCAINE 2% INJ 20 MG/ML (2 ML VIAL) ONE (12:40)
[2022-02-28] MEDS ORDERED: GLYCOPYRROLATE 0.2 MG/ML 2 ML VIAL ONE (12:40)
[2022-02-28] MEDS ORDERED: SUCCINYLCHOLINE CHLORIDE 200 MG/10 ML VIAL IV ONE (12:40)
[2022-02-28] MEDS ORDERED: MIDAZOLAM 2 MG/2 ML VIAL ONE (12:40)
--- NOTE | 2022-02-28 12:50 | P.GSHP ---
History of Present Illness H&P Date: 02/28/22 Chief Complaint: Chronic cholecystitis 76-year-old female seen in the office in January of last year. Patient with intermittent complaints of right upper quadrant pain since April of last year. Transient elevation of transaminases were noted. Patient says symptoms are ag gravated by greasy foods. Has symptoms most days of the week. Ultrasound showed gallstones. No change in the color of her skin urine or stool. Patient underwent recent cardiac workup that led to cardiac catheterization that was normal. Here today for cholecystectomy. Patient with a history of a known incarcerated ventral hernia. No symptoms from the hernia. Past Medical History Past Medical History: Asthma, Hypertension, Osteoarthritis (OA) Additional Past Medical History / Comment(s): Other HX: HYPERCALCEMIA, HX OF LEFT VENTRICULAR TACHYCARDIA 1999 had ablation has been fine. arthritis to knees, feet and back History of Any Multi-Drug Resistant Organisms: None Reported Past Surgical History: Cardiac Ablation, Section, Heart Catheterization, Orthopedic Surgery Additional Past Surgical History / Comment(s): 02/24/15 Acromioplasty excision distal clavicle rotator cuff repair L shoulder. Othe surgeries: C-SEC X5, parathyroid surgery. Past Anesthesia/Blood Transfusion Reactions: Postoperative Nausea & Vomiting (PONV) Additional Past Anesthesia/Blood Transfusion Reaction / Comment(s): hx vertigo Smoking Status: Never smoker - Past Family History Father Family Medical History: Cancer Additional Family Medical History / Comment(s): SKIN CANCER Mother Family Medical History: No Reported History Sister(s) Additional Family Medical History / Comment(s): SKIN CANCER Daughter(s) Family Medical History: Cancer Additional Family Medical History / Comment(s): breast cancer Medications and Allergies Home Medications Medication Instructions Recorded Confirmed Type Metoprolol Tartrate [Lopressor] 50 mg PO DAILY 11/18/18 02/28/22 History Multivitamins, Thera [Multivitamin 1 tab PO DAILY 11/18/18 02/28/22 History (formulary)] Aspirin [Adult Low Dose Aspirin EC] 81 mg PO DAILY 02/19/22 02/28/22 History Cholecalciferol (Vitamin D3) 1 tab PO DAILY 02/19/22 02/28/22 History [Vitamin D3 (3000 Iu)] Naproxen Sodium [Aleve] 1 tab PO DAILY PRN 02/19/22 02/28/22 History hydroCHLOROthiazide 12.5 mg PO DAILY 02/19/22 02/28/22 History Allergies Allergy/AdvReac Type Severity Reaction Status Date / Time lisinopril Allergy Cough Verified 02/28/22 10:56 Milk Containing Products Allergy Diarrhea Verified 02/28/22 10:57 [Dairy] pollen extracts Allergy Cough Verified 02/28/22 10:57 Surgical - Exam Vital Signs Temp Pulse Resp BP Pulse Ox 97.8 F 91 16 159/67 95 02/28/22 11:00 02/28/22 11:00 02/28/22 11:00 02/28/22 11:00 02/28/22 11:00 Physical exam: General: Well-developed, well-nourished HEENT: Normocephalic, sclerae nonicteric Abdomen: Nontender, nondistended, small incarcerated supra umbilical hernia Extremities: No edema Neuro: Alert and oriented Assessment and Plan (1) Chronic cholecystitis Narrative/Plan: 76-year-old female with chronic cholecystitis. We'll proceed with laparoscopic, possible open cholecystectomy at this time. Discussed options of hernia repair. Given the lack of symptoms we have decided to continue with observation of the hernia for now. Risks of bleeding, infection, bile leak, bile duct injury, retained common bile duct stone, trocar injury, conversion to an open procedure, hernia, anesthesia related complications were reviewed. The patient understands and wishes to proceed. Current Visit: Yes Status: Acute Code(s): K81.1 - CHRONIC CHOLECYSTITIS SNOMED Code(s): 11039513
[2022-02-28] MEDS ORDERED: traMADol 50 MG TAB PO PRN (13:57)
--- NOTE | 2022-02-28 14:00 | P.OP ---
Date of Procedure: 02/28/22 Procedure(s) Performed: PREOPERATIVE DIAGNOSIS: Chronic cholecystitis POSTOPERATIVE DIAGNOSIS: Same PROCEDURE: Laparoscopic cholecystectomy with lysis of adhesions SURGEON: Mc EBL: Minimal see anesthesia record ANESTHESIA: Gen. COMPLICATIONS: None OPERATIVE PROCEDURE: The patient was brought and placed on the operating room table in the supine position. The patient was placed under general anesthesia at that time. The abdomen was prepped and draped in the usual sterile fashion. Entrance into the abdominal cavity took place using a 5 mm optical trocar in the right upper quadrant. There were no adhesions adjacent to the trocar entrance site. Full insufflation took place. Surprisingly there were no adhesions to the midline where the patient had a noticeable supraumbilical hernia and a large midline infraumbilical incision. There was no peritoneal defect at the hernia site. An infraumbilical 5 mm trocar was placed under direct visualization. The camera was then inserted through that location. A 12 mm epigastric trocar was then placed. The patient had a large amount of adhesions between the omentum and the pericolonic fat and the abdominal wall and the liver margin. Approximately 30 minutes of lysis of adhesions took place in that region. This was performed using both blunt dissection sharp dissection and electrocautery. The gallbladder was distended and fairly large. This was able to be grasped and retracted superiorly. Blunt dissection at the infundibulum occurred. The patient's cystic duct was visualized. The junction between the cystic duct common and hepatic duct was identified. The critical view of safety was achieved after blunt dissection. The cystic duct was then divided after placement of 3 12 mm clips on the patient's side and one on the specimen side. The cystic artery was identified and clipped as well. A small vessel was seen along the gallbladder fossa and clipped as well. The gallbladder was then removed from the liver bed using electrocautery. The gallbladder was then removed from the epigastric trocar site with an Endo Catch bag. The gallbladder fossa was irrigated with saline. There was no evidence of any bleeding or biliary drainage seen. The fascia at the 12 millimeter site was closed using a Reggie-Isaias 0 Vicryl stitch. The trochars were then removed. The skin at all 4 sites was closed using a 4-0 Monocryl stitch. Skin glue was utilized on the incision sites. At the end of this procedure the sponge and needle counts were correct. DISPOSITION: Stable to the recovery room
[2022-02-28 14:21] VITALS: TEMP 96.8
[2022-02-28] MEDS: HYDROmorphone 0.5 MG/0.5 ML SYRINGE IVP PRN ×2 (14:29→14:33)
[2022-02-28] MEDS ORDERED: ACETAMINOPHEN TAB 325 MG TAB PO SCH (15:00)
[2022-02-28] MEDS ORDERED: IBUPROFEN 600 MG TAB PO SCH (17:00)
[2022-02-28 18:03] VITALS: BP 150/79; PULSE 70; RESP 18
== END 2022-02-28 19:03 | disposition home or self-care (01) ==
LOC: OR 10:38
PROVIDERS: ATTEND Surgery
DX: K80.10 Calculus of gallbladder with chronic cholecystitis without obstruction (principal); J45.909 Unspecified asthma, uncomplicated; I10 Essential (primary) hypertension; M19.90 Unspecified osteoarthritis, unspecified site; Z80.8 Family history of malignant neoplasm of other organs or systems; Z80.3 Family history of malignant neoplasm of breast; Z79.82 Long term (current) use of aspirin; Z79.899 Other long term (current) drug therapy
CPT/HCPCS: 47562; J2250; J0330; J1100; J2710; J0690; J2405; J3010; J1885; J2704; J1170; J1790; J1644; J2001; 88304

== ENCOUNTER → 2022-05-23 | Outpatient (CLI) | payer MEDICARE, OTHER ==
[2022-05-23 12:23] LABS: Prothrombin Time 10.2 sec (9.0-12.0)
[2022-05-23 15:29] LABS: Appearance,Urine Clear (Clear); Bilirubin,Urine Negative (Negative); Blood,Urine Negative (Negative); Color,Urine Yellow (Yellow); Ketones,Urine Negative (Negative); Nitrite,Urine Negative (Negative); Specific Gravity,Urine 1.006 (1.001-1.030); Urobilinogen,Urine 0.2 (0.2,1.0)
[2022-05-23 15:36] LABS: Bacteria,Urine None Seen /HPF (None Seen)
[2022-05-23 15:39] LABS: HCT 42.4 % (37.2-46.3); HGB 14.1 g/dL (12.0-15.0); MCH 29.7 pg (27.0-32.0); MCHC 33.3 g/dL (32.0-37.0); MCV 89.5 fL (80.0-97.0); Mean Platelet Volume 10.5 fL (9.5-12.2); NRBC Per 100 WBC 0 /100 WBCS (0.0-0.0); Platelet Count 227 X 10*3/uL (140-440); RBC 4.74 X 10*6/uL (4.10-5.20); RDW 12.8 % (11.5-14.5); WBC 4.62 X 10*3/uL (4.50-10.00)
[2022-05-23 15:44] LABS: African American GFR (CKD) 104.2 (60.0-200.0); Albumin/Globulin Ratio 1.35 (1.60-3.17); Anion Gap 9.7 mmol/L (10.00-18.00); BUN/Creat Ratio 24.23 Ratio (12.00-20.00); Blood Urea Nitrogen 13.3 mg/dL (9.0-27.0); Calcium 10.3 mg/dL (8.7-10.3); Carbon Dioxide 29.6 mmol/L (20.0-27.5); Non-African American GFR(CKD) 89.9 (60.0-200.0); Potassium 3.8 mmol/L (3.5-5.5); Total Bilirubin 0.4 mg/dL (0.30-1.20)
== END | disposition home or self-care (01) ==
LOC: LABWHC1 09:57
PROVIDERS: ATTEND Orthopaedic Surgery
DX: Z01.818 Encounter for other preprocedural examination (principal); I42.2 Other hypertrophic cardiomyopathy; I21.4 Non-ST elevation (NSTEMI) myocardial infarction; R94.31 Abnormal electrocardiogram [ECG] [EKG]
CPT/HCPCS: 36415; 80053; 81001; 83036; 85027; 85610; 85730; 87070; 93005

== ENCOUNTER 2022-05-31 11:05 | Day surgery (SDC) | payer MEDICARE, OTHER ==
[~2022-05-31 11:05] MED LIST changes: +DEXAMETHASONE SOD PHOSPHATE 10 MG/ML 1 ML VIAL IV PRN; -DEXAMETHASONE SOD PHOSPHATE 4 MG/ML 1 ML VIAL IV ONE; +DOCUSATE 100 MG CAP PO PRN; +FAMOTIDINE 20 MG/2 ML VIAL IVP PRN; -HEPARIN SODIUM,PORCINE/PF 5,000 UNIT/0.5 ML SYRINGE SQ PRN; +HYDROmorphone 0.5 MG/0.5 ML SYRINGE IVP PRN; +KETOROLAC 15 MG/ML 1 ML VIAL IVP PRN; -LACTATED RINGERS 1,000 ML IV SCH; -LIDOCAINE 1% (10MG/ML) FOR IV START INTRADERMA PRN; +ONDANSETRON 4 MG/2 ML VIAL IVP PRN; +ROPIVACAINE/EPI/CLONIDINE/KET 50 ML SYRINGE MISCELLANE PRN; +TRANEXAMIC ACID IN NACL,ISO-OS 1,000 MG in SALINE 1 100ML.BAG IV PRN; +TRANEXAMIC ACID IN NACL,ISO-OS 1,000 MG in SALINE 1 100ML.BAG IVPB PRN; +oxyCODONE ER 10 MG TAB.ER.12H PO PRN
[2022-05-31] MEDS: LACTATED RINGERS 1,000 ML IV SCH ×2 (12:21→18:56)
[2022-05-31] MEDS ORDERED: fentaNYL (PF) 50 MCG/ML 2 ML AMP IVP ONE (13:12)
--- NOTE | 2022-05-31 13:29 | P.ANPRN ---
Procedure Note - Anesthesia - Nerve Block Performed Right Parsons Single Time Out Performed: Yes (1312) Date of Procedure: 05/31/22 Procedure Start Time: 13:13 Procedure Stop Time: 13:18 Location of Patient: PreOp Indication: Acute Post-Operative Pain, Requested by Surgeon Specifically requested for management of pain by DrBrad: Wilmer Bean Sedation Type: Sedate with meaningful contact maintained Preparation: Sterile Prep Position: Supine Catheter: None Needle Types: Pajunk Needle Gauge: 21 Ultrasound used to visualize needle placement: Yes Ultrasound used to observe medication spread: Yes Injectate: 0.5% Ropivacaine (see comment for volume) (30cc) Blood Aspirated: No Pain Paresthesia on Injection Noted: No Resistance on Injection: Normal Image Stored and Saved: Yes Events: Uneventful and Well Tolerated
[2022-05-31] MEDS ORDERED: PROPOFOL 10 MG/ML 20 ML VIAL IV ONE (15:33)
[2022-05-31] MEDS ORDERED: ROCURONIUM 10 MG/ML (5 ML VIAL) IV ONE (15:33)
[2022-05-31] MEDS ORDERED: ePHEDrine 50 MG/ML 1 ML VIAL ONE (15:33)
[2022-05-31] MEDS ORDERED: NEOSTIGMINE 1 MG/ML 10 ML VIAL ONE (15:33)
[2022-05-31] MEDS ORDERED: TRANEXAMIC ACID IN NACL,ISO-OS 1,000 MG/100 ML BAG ONE (15:33)
[2022-05-31] MEDS ORDERED: WATER FOR INJECTION, STERILE 10 ML VIAL IV ONE (15:33)
[2022-05-31] MEDS ORDERED: SUCCINYLCHOLINE CHLORIDE 200 MG/10 ML VIAL IV ONE (15:33)
[2022-05-31] MEDS ORDERED: ROPIVACAINE 5 MG/ML 30 ML VIAL ONE (15:33)
[2022-05-31] MEDS ORDERED: HYDROmorphone (PF) 1 MG/ML ONE (15:33)
[2022-05-31] MEDS ORDERED: fentaNYL (PF) 50 MCG/ML 2 ML AMP ONE (15:33)
[2022-05-31] MEDS ORDERED: LIDOCAINE 2% INJ 20 MG/ML (2 ML VIAL) ONE (15:33)
[2022-05-31] MEDS ORDERED: GLYCOPYRROLATE 0.2 MG/ML 2 ML VIAL ONE (15:33)
[2022-05-31] MEDS ORDERED: LACTATED RINGERS 1,000 ML IV ONE (16:32)
[2022-05-31] MEDS ORDERED: VANCOMYCIN 1,000 MG VIAL MISCELLANE ONE (17:34)
--- NOTE | 2022-05-31 18:30 | XR ---
Fluoroscopy History: OA right hip 35 sec FL-2.1245 Gycm2-7 images
[2022-05-31] MEDS ORDERED: HYDROmorphone 0.5 MG/0.5 ML SYRINGE IVP PRN ×3 (18:39)
[2022-05-31] MEDS ORDERED: HYDROcodone/APAP 5-325MG 1 EACH TAB PO PRN (18:39)
[2022-05-31] MEDS ORDERED: NALOXONE 0.4 MG/ML 1 ML VIAL IV PRN (18:39)
[2022-05-31] MEDS ORDERED: hydrOXYzine pamoate 25 MG CAP PO PRN (18:39)
--- NOTE | 2022-05-31 18:42 | P.OP ---
Date of Procedure: 05/31/22 Preoperative Diagnosis: 1. Severe right hip osteoarthritis 2. BMI 37 Postoperative Diagnosis: Same Procedure(s) Performed: 1. Right direct anterior total hip replacement 2. Application of negative pressure incisional wound VAC less than 50 cm right hip (incision measuring 15 cm) Implants: 1. Jamison Trident II Acetabular Cup, Size #48 2. Jamison Accolade C Size #3 Femoral Stem, High Offset 3. Biolox delta femoral head, 36 mm, -5 neck Anesthesia: JOSE, regional Surgeon: Wilmer Bean Critical Care Nurse #1: Annabelle Willis Estimated Blood Loss (ml): 300 IV fluids (ml): 1,200 Pathology: none sent Condition: stable Disposition: PACU Indications for Procedure: I had a long discussion with the patient in the office on the potential risks and complications of an elective total hip replacement through a direct anterior approach. Risks discussed include, but are certainly not limited to, risks from anesthesia, superficial infection requiring local wound care or antibiotics, deep jax-prosthetic joint infection and the treatment required to eradicate infection, intraoperative fracture, postoperative periprosthetic fracture, damage to local blood vessels or nerves particularly the lateral femoral cutaneous nerve, delayed wound healing requiring local wound care or possibly surgical debridement, hip dislocation, leg length discrepancy, soft tissue irritation around the total hip implant such as iliopsoas tendinitis or trochanteric bursitis, wear and osteolysis from the implants, squeaking or audible noises, groin pain, thigh pain, heterotopic ossification, stiffness, aseptic loosening of the implants, dissatisfaction with surgical outcome, need for revision surgery, DVT, PE, swelling of the operative extremity, acute coronary event, stroke, failure to thrive, and possibly loss of life or limb. The patient understands that while these are the most common complications after an elective hip replacement there are certainly other less common complications possible. They were given ample time to ask questions regarding the potential complications of a hip replacement. Following our discussion the patient provided their verbal and written consent to go forward with an elective total hip replacement. Operative Findings: Severe right hip osteoarthritis Description of Procedure: The patient was identified in the preoperative holding area and the correct hip was marked with my initials. I reviewed the procedure and consent with the patient. All of their questions were answered. The patient was then brought back into the operating room by anesthesia. While on the [facility] anesthesia was administered by the anesthesia team. Preoperative antibiotics and tranexamic acid were also given. After the patient was under anesthesia I examined their ankles to determine their preoperative leg length discrepancy. The skin over the anterior aspect of the hip was shaved to remove hair over the site of planned incision. Both feet and ankles were padded with webril and boots for the Corder were applied. The patient was then carefully transferred onto the Corder table. A perineal post was immediately placed. The arms were placed on arm holders and were well-padded. Both boots were secured to the spars on the Corder table. The patient was positioned so that the pelvis was centered over the post. Nonsterile drapes were applied. A timeout was performed identifying the correct patient, operative extremity, and procedure. At this point fluoroscopy was brought in to take preoperative images of the pelvis and operative hip. Using the standing AP pelvis from the office as a template, a comparable image was obtained with fluoroscopy. A metallic bar was used to create a bi-ischial line for use as a reference to leg length adjustments during the procedure. Global offset was also measured on both the operative and nonoperative leg. Fluoroscopy was then brought out and a pre-scrub using a chlorhexidine scrub brush was performed. The operative limb was then prepped and draped in the standard sterile fashion. An anterior longitudinal incision was made lateral and distal to the ASIS. The skin and subcutaneous tissues were incised sharply. The underlying tensor fascia was identified and incised in its midportion. The fascia was dissected free from the underlying muscle and the muscle belly was retracted. A blunt tipped cobra retractor was placed over the superior neck under the muscle fibers of the gluteus minimus. The deep enveloping fascia of the tensor was incised. The anterior leash of vessels were then identified and cauterized. The fascia between the rectus and the capsule was then incised and the pre-capsular fat was excised. A second Cobra was placed inferior to the neck. The interval between the rectus and iliocapsularis and the hip capsule was developed and a retractor was placed carefully over the anterior rim of the acetabulum. A T-shaped anterior capsulotomy was performed. The superior capsular leaflet was left in place in the inferior capsular flap was excised. The Cobra retractors were placed intracapsularly. We then made a femoral neck osteotomy according to preo perative and intraoperative templating and confirmed the level of the osteotomy using fluoroscopic imaging. The femoral head was removed, passed off to the back table, and sized. The superior capsular flap was excised. Retractors were placed circumferentially exposing the acetabulum. We then circumferentially debrided the acetabulum free of labrum and osteophytes. The pulvinar was removed to fully visualize the cotyloid fossa. We then sequentially reamed to achieve peripheral fit and excellent bleeding subchondral bone. The socket was thoroughly irrigated. The acetabular component was impacted into the appropriate position using fluoroscopy to guide version, inclination, and depth of insertion taking care to have a comparable image of the AP pelvis to the standing image taken in the office. An excellent press-fit was achieved and final position was confirmed using fluoroscopy. The press fit was augmented with bony cancellus dome screws. The liner was then impacted into the socket. Attention was then turned to the femur. The remnant dorsal lateral capsule was excised. The short external rotators were visible and protected. A bone hook was used to confirm appropriate translation of the trochanter away from the acetabulum. The leg was then extended and adducted and the bone hook was used to elevate the femur for broaching. On inspection of the patient's proximal f emur, they appeared to have poor bone quality so I elected to proceed with cemented fixation of the femoral component. A box osteotome and blunt tipped canal sound was then utilized to gain access to the femoral canal. We then sequentially broached the femur in appropriate anteversion until torsional stability was achieved and the implant was felt to have reached the appropriate size to allow trialing. The neck cut was brought flush to the trial broach with a calcar planar. A trial neck and head were then placed onto the broach and the hip was atraumatically reduced under direct visualization. External rotation to 90 was performed to assess stability. Fluoroscopy was brought in. An AP and lateral fluoroscopic image of the proximal femur was obtained to assess position and fill of the trial broach. An AP of the pelvis was then obtained and matched to the preoperative image taken. A bi-ischial bar was then placed and measurements were taken to assess changes in length and offset. The hip was then carefully dislocated, the proximal femur was exposed, and the trial implants were removed. The proximal femur was then prepared for cementing. The canal was thoroughly irrigated with pulsatile lavage to remove blood and marrow contents. A cement restrictor was placed to a depth just distal to the tip of the final implant. Epinephrine-soaked gauze was then packed into the proximal femur. 2 bags of cement were then mixed using a centrifuge and placed into a cement gun. Anesthesia was notified that cementing was about to commence to make sure the patient was appropriately ventilated and hydrated. Once the cement had reached appropriate consistency, the cement gun was used to fill the canal in a retrograde fashion starting at the restrictor. Cement was then pressurized into the canal with a blue tipped metal pourer. The stem was then carefully introduced into the cement taking care to guide the implant into appropriate version. The stem was held in position until the cement had fully set. All extra cement was removed while the cement was hardening. The trunnion was cleansed and the final head was tapped into place to engage the Duong taper. The acetabulum was irrigated and visualized to be free of debris. The hip was carefully reduced. Stability was checked clinically with external rotation to 90 and there was no evidence of instability. Final fluoroscopic images were taken. The wound was then thoroughly irrigated and soaked with a dilute Betadine rinse for 3 minutes. 3 L of sterile saline was irrigated through the wound using pulsatile lavage. Local anesthetic cocktail was injected into the soft tissues around the surgical field. 2 g of vancomycin powder was placed deep at the level of the implants. A deep drain was placed. The wound was then closed in layers. After the incision was closed and incisional wound VAC was placed due to the body habitus and BMI. The drapes were taken down and the patient was carefully transferred off of the Corder table. Following removal of the boots the leg lengths felt acceptable. The patient was then taken to recovery room having tolerated the procedure well. Annabelle Willis PA-C was required as a skilled technology assistant for patient positioning, surgical exposure, retraction, placement of implants, and closure of the surgical wound. PLAN: The patient can weight-bear as tolerated on the operative extremity. 2 doses of postoperative antibiotics. DVT prophylaxis with aspirin 81 mg twice a day based on preoperative risk stratification. Physical therapy for gait training. Discontinue drain postoperative day #1 if output is less than 100 mL per shift. Due to the patient's elevated BMI he'll be sent home on 2 weeks of doxycycline until her incision heals. She'll be follow-up in the office in 2 weeks for a wound check and x-rays of the pelvis and hip.
[2022-05-31] MEDS ORDERED: ONDANSETRON 4 MG/2 ML VIAL IVP ONE (19:33)
[2022-05-31] MEDS: ASPIRIN 81 MG PO SCH (20:54)
[2022-05-31] MEDS ORDERED: SENNOSIDES-DOCUSATE SODIUM 1 EACH TAB PO SCH (21:00)
[2022-05-31] MEDS: HYDROcodone/APAP 5-325MG 1 EACH TAB PO PRN (23:33)
[2022-06-01 03:33] VITALS: RESP 17; TEMP 97.5
[2022-06-01] MEDS: HYDROcodone/APAP 5-325MG 1 EACH TAB PO PRN ×2 (05:55→11:46)
[2022-06-01] MEDS: LACTATED RINGERS 1,000 ML IV SCH ×2 (06:42→07:53)
[2022-06-01 07:43] VITALS: BP 113/56; PULSE 70
[2022-06-01] MEDS: ASPIRIN 81 MG PO SCH (08:51)
--- NOTE | 2022-06-01 09:09 | P.PN ---
Subjective Progress Note Date: 06/01/22 Patient is doing well this morning. She has been up walking several times. Her pain is controlled. She has no issues. Objective - Vital Signs Vital signs: Vital Signs Temp 97.5 F L 06/01/22 07:15 Pulse 70 06/01/22 07:15 Resp 17 06/01/22 07:15 BP 113/56 06/01/22 07:15 Pulse Ox 94 L 06/01/22 07:15 FiO2 Intake & Output 05/31/22 06/01/22 06/01/22 18:59 06:59 18:59 Intake Total 2049 1450 Output Total 300 160 Balance 1750 1290 Weight 94.3 kg 94.3 kg Intake: IV 0 Intake, IV Titration 1250 Amount Lactated Ringers 1,000 ml 1200 @ 100 mls/hr IV .Q10H [facility] Rx#:[id number] ceFAZolin 2 gm In Sodium 50 Chloride 0.9% 50 ml @ 100 mls/hr IVPB Q8HR [facility] Rx# :[id number] Oral 200 Output: Drainage 160 Right Anterior Hip 160 Estimated Blood Loss 300 Other: Voiding Method Toilet # Voids 3 - Exam Patient is sitting up in a chair. She is alert and able to answer questions. On inspection her wound VAC is in place with good seal. Her drain was removed. Femoral nerve function is intact. She is able to actively dorsiflex her ankle and her toes. Assessment and Plan Assessment: Postoperative day #1 status post direct anterior right total hip replacement, doing well Plan: 1. Weightbearing as tolerated right leg, up with assistance 2. 2 doses of postoperative antibiotics followed by doxycycline and as an outpatient 3. Incisional wound VAC, leave in place. Drain removed this morning. 4. Internal medicine for preoperative medical management 5. Disposition: The patient is going to attempt to leave this morning. I'm okay with her discharging if she passes physical therapy and her pain is controlled.
--- NOTE | 2022-06-01 09:10 | P.DS ---
Providers Attending physician: Wilmer Bean Consults: 05/31/22 18:39 Consult Physician Routine Consulting Provider: Fawn Matos Consult Reason/Comments: medical management Do you want consulting provider notified?: Yes, Notify in am Primary care physician: [facility] Course: The patient's very pleasant 69-year-old female who underwent an uncomplicated right total hip replacement yesterday. Following surgery she was transferred to the floor stable condition. There were no issues overnight. This morning she is resting comfortably in a chair. Her pain is controlled. She is ready been up several times with therapy. Internal medicine has been consulted for perioperative medical management. We will work towards discharge home later today if her pain is controlled, she passes physical therapy. And she is cleared by internal medicine. Plan - Discharge Summary Discharge Rx Participant: Yes New Discharge Prescriptions: New Omeprazole 40 mg PO DAILY 30 Days #30 cap Diclofenac Sodium [Voltaren] 75 mg PO BID 30 Days #60 tab Aspirin 81 mg PO BID 30 Days #60 tab Docusate [Colace] 100 mg PO BID #60 capsule HYDROcodone/APAP 5-325MG [[place] 5-325] 1 - 2 tab PO Q6HR PRN 7 Days #32 tab PRN Reason: Pain Doxycycline Monohydrate 100 mg PO BID 14 Days #28 cap No Action Multivitamins, Thera [Multivitamin (formulary)] 1 tab PO DAILY hydroCHLOROthiazide 12.5 mg PO DAILY Cholecalciferol (Vitamin D3) [Vitamin D3 (3000 Iu)] 1 tab PO DAILY Acetaminophen [Tylenol Extra Strength] 500 mg PO Q6H PRN PRN Reason: Pain Metoprolol Succinate (ER) [Toprol Xl] 50 mg PO DAILY Discharge Medication List Multivitamins, Thera [Multivitamin (formulary)] 1 tab PO DAILY 11/18/18 [History] Cholecalciferol (Vitamin D3) [Vitamin D3 (3000 Iu)] 1 tab PO DAILY 02/19/22 [History] hydroCHLOROthiazide 12.5 mg PO DAILY 02/19/22 [History] Acetaminophen [Tylenol Extra Strength] 500 mg PO Q6H PRN 05/27/22 [History] Metoprolol Succinate (ER) [Toprol Xl] 50 mg PO DAILY 05/27/22 [History] Aspirin 81 mg PO BID 30 Days #60 tab 05/31/22 [Rx] Diclofenac Sodium [Voltaren] 75 mg PO BID 30 Days #60 tab 05/31/22 [Rx] Docusate [Colace] 100 mg PO BID #60 capsule 05/31/22 [Rx] Doxycycline Monohydrate 100 mg PO BID 14 Days #28 cap 05/31/22 [Rx] HYDROcodone/APAP 5-325MG [[place] 5-325] 1 - 2 tab PO Q6HR PRN 7 Days #32 tab 05/31/22 [Rx] Omeprazole 40 mg PO DAILY 30 Days #30 cap 05/31/22 [Rx] Follow up Appointment(s)/Referral(s): [facility] [[facility]] - 1-2 Days ([facility] will call you to schedule your in home physical therapy visits. ) Wilmer Bean MD [Medical Doctor] - 2 Weeks Activity/Diet/Wound Care/Special Instructions: Weight bear to tolerance on operative extremity with a walker. Keep surgical dressing in place until follow-up in the office. Call the office if dressing becomes saturated or falls off. May shower over dressing. Take pain medications as needed. Take aspirin 81mg twice a day for blood clot prevention. Follow-up in the office in two weeks at [facility]. Call the office with any question or concerns, Discharge Disposition: HOME WITH HOME HEALTH SERVICES
[2022-06-01 09:27] LABS: Basophils # (A) 0.03 X 10*3/uL (0.00-0.10); Basophils % (A) 0.2 %; Eosinophils # (A) 0 X 10*3/uL (0.04-0.35); Eosinophils % (A) 0 %; HCT 32.5 % (37.2-46.3); HGB 10.5 g/dL (12.0-15.0); Immature Grans, Automated 0.3 %; Lymphocytes # (A) 0.94 X 10*3/uL (0.90-5.00); Lymphocytes % (A) 6.4 %; MCH 29.5 pg (27.0-32.0); MCHC 32.3 g/dL (32.0-37.0); MCV 91.3 fL (80.0-97.0); Monocytes # (A) 0.77 X 10*3/uL (0.20-1.00); Monocytes % (A) 5.2 %; NRBC Per 100 WBC 0 /100 WBCS (0.0-0.0); Neutrophils # (A) 12.93 X 10*3/uL (1.80-7.70); Neutrophils % (A) 87.9 %; Platelet Count 201 X 10*3/uL (140-440); RBC 3.56 X 10*6/uL (4.10-5.20); RDW 13.1 % (11.5-14.5); WBC 14.71 X 10*3/uL (4.50-10.00)
[2022-06-01] MEDS ORDERED: ONDANSETRON 4 MG/2 ML VIAL IVP PRN (10:13)
[2022-06-01] MEDS ORDERED: ACETAMINOPHEN TAB 500 MG TAB PO PRN (10:20)
[2022-06-01] MEDS ORDERED: CHOLECALCIFEROL 25 MCG (1000 IU) TABLET PO SCH (10:30)
[2022-06-01] MEDS ORDERED: METOPROLOL SUCCINATE (ER) 50 MG TAB.ER.24H PO SCH (10:30)
--- NOTE | 2022-06-01 10:51 | P.CONS ---
History of Present Illness - Reason for Consult Consult date: 06/01/22 - History of Present Illness Angeli Gilliland, is a 77-year-old female, patient of Dr. pina, who was admitted to [facility] by Dr. Bean, and underwent right total hip arthroplasty on 05/31/2022, medical consultation was requested for management while hospitalized. Past medical history is significant for history of hypertension, history of hyperlipidemia, history of episodes of chest pain patient underwent cardiac catheterization in February [address] Deal which revealed normal coronary arteries, history of cardiac arrhythmia was history of cardiac ablation, history of hypercalcemia with history of hyperparathyroidism, history of essential tremor, history of anxiety disorder, and history of osteoarthritis. On review of systems patient is alert and oriented 3 in no apparent distress at this time she is complaining of severe nausea otherwise she denies any complaints there is no fever or chills no headache or dizziness no chest pain no shortness of breath no cough no vomiting no abdominal pain no diarrhea no blood in the stools no burning with urination no frequency or urgency and no he maturia. Past Medical History Past Medical History: Asthma, Hypertension, Osteoarthritis (OA) Additional Past Medical History / Comment(s): HX: HYPERCALCEMIA due to parathroid-had surg., HX OF LEFT VENTRICULAR TACHYCARDIA 1999, had ablation has been fine. arthritis to knees, feet and back History of Any Multi-Drug Resistant Organisms: None Reported Past Surgical History: Cardiac Ablation, Section, Cholecystectomy, Heart Catheterization, Orthopedic Surgery Additional Past Surgical History / Comment(s): Acromioplasty excision distal clavicle rotator cuff repair L shoulder. Othe surgeries: C-SEC X5, parathyroidectomy Past Anesthesia/Blood Transfusion Reactions: Motion Sickness, Postoperative Nausea & Vomiting (PONV) Additional Past Anesthesia/Blood Transfusion Reaction / Comm: hx vertigo Past Psychological History: Anxiety Additional Psychological History / Comment(s): Pt resides alone. She is independent. She uses no assistive device. She drives. Smoking Status: Never smoker Past Alcohol Use History: None Reported Past Drug Use History: None Reported - Past Family History Father Family Medical History: Cancer Additional Family Medical History / Comment(s): SKIN CANCER Mother Family Medical History: No Reported History Sister(s) Additional Family Medical History / Comment(s): SKIN CANCER Daughter(s) Family Medical History: Cancer Additional Family Medical History / Comment(s): breast cancer Medications and Allergies Home Medications Medication Instructions Recorded Confirmed Type Multivitamins, Thera [Multivitamin 1 tab PO DAILY 11/18/18 05/27/22 History (formulary)] Cholecalciferol (Vitamin D3) 1 tab PO DAILY 02/19/22 05/27/22 History [Vitamin D3 (3000 Iu)] hydroCHLOROthiazide 12.5 mg PO DAILY 02/19/22 05/27/22 History Acetaminophen [Tylenol Extra 500 mg PO Q6H PRN 05/27/22 05/27/22 History Strength] Metoprolol Succinate (ER) [Toprol 50 mg PO DAILY 05/27/22 05/27/22 History Xl] Aspirin 81 mg PO BID #60 tab 06/01/22 Rx Diclofenac Sodium [Voltaren] 75 mg PO BID #60 tab 06/01/22 Rx Docusate [Colace] 100 mg PO BID #60 capsule 06/01/22 Rx Doxycycline Monohydrate 100 mg PO BID 14 Days #28 cap 06/01/22 Rx HYDROcodone/APAP 5-325MG [[place] 5] 1 - 2 each PO Q4-6H PRN #32 tab 06/01/22 Rx Omeprazole [PriLOSEC] 40 mg PO DAILY #30 cap 06/01/22 Rx Allergies Allergy/AdvReac Type Severity Reaction Status Date / Time lisinopril AdvReac Cough Verified 05/31/22 12:16 Milk Containing Products AdvReac Diarrhea Verified 05/31/22 12:16 [Dairy] pollen extracts AdvReac Cough Verified 05/31/22 12:16 milk chocolate AdvReac GI upset Uncoded 05/27/22 08:52 Physical Exam Vitals: Vital Signs Temp Pulse Pulse Resp BP BP Pulse Ox 06/01/22 07:15 97.5 F L 70 17 113/56 94 L 06/01/22 02:00 97.5 F L 89 17 112/70 97 05/31/22 21:38 80 107/67 98 05/31/22 21:23 76 110/70 97 05/31/22 20:53 74 126/75 96 05/31/22 20:38 73 136/76 96 05/31/22 20:23 81 143/80 97 05/31/22 20:08 82 147/77 98 05/31/22 19:53 75 160/71 97 05/31/22 19:48 84 111/57 94 L 05/31/22 19:20 77 16 142/65 96 05/31/22 19:05 73 16 133/65 99 05/31/22 18:50 85 16 128/58 98 05/31/22 18:35 97.7 F 97 18 134/60 99 05/31/22 13:20 70 16 131/59 96 05/31/22 12:17 97.1 F L 80 16 190/84 95 Intake and Output 05/31/22 06/01/22 06/01/22 22:59 06:59 14:59 Intake Total 1650 1450 Output Total 300 160 Balance 1350 1290 Intake: IV 1650 Intake, IV Titration 1250 Amount Lactated Ringers 1,000 ml 1200 @ 100 mls/hr IV .Q10H NABIL Rx#:[id number] ceFAZolin 2 gm In Sodium 50 Chloride 0.9% 50 ml @ 100 mls/hr IVPB Q8HR NABIL Rx# :[id number] Oral 200 Output: Drainage 160 Right Anterior Hip 160 Estimated Blood Loss 300 Other: Voiding Method Toilet # Voids 3 Weight 94.3 kg In general patient is alert and oriented x 3 in no distress HEENT head normocephalic and atraumatic Neck is supple no JVD no goiter no lymphadenopathy no carotid bruit Chest examination is clear to auscultation no crackles no wheezing Cardiac exam reveals regular heart sounds S1 and S2 no gallops no murmurs Abdomen is soft nontender no organomegaly with normal bowel sounds Extremity exam reveals no edema no cyanosis or clubbing Neurological examination reveals no gross focal deficits Results CBC & Chem 7: 06/01/22 06:10 Labs: Abnormal Lab Results - Last 24 Hours (Table) 06/01/22 Range/Units 06:10 WBC 14.71 H (4.50-10.00) X 10*3/uL RBC 3.56 L (4.10-5.20) X 10*6/uL Hgb 10.5 L (12.0-15.0) g/dL Hct 32.5 L (37.2-46.3) % Neutrophils # 12.93 H (1.80-7.70) X 10*3/uL Eosinophils # 0 L (0.04-0.35) X 10*3/uL Assessment and Plan Plan: Severe right hip osteoarthritis, status post right total hip arthroplasty on 05/31/[address] Bean, pain management and DVT prophylaxis per orthopedic protocol Underlying history of hypertension Previous history of chest pain, patient underwent cardiac catheterization was Dr. Deal in February 2022 which revealed normal coronary arteries Previous history of cardiac arrhythmia was history of cardiac ablation Underlying history of hyperlipidemia Underlying history of hyperparathyroidism Underlying history of osteoarthritis At this time patient was seen and examined Home medications reviewed and reordered Patient is complaining of severe nausea, Zofran was ordered Will follow closely during this admission
[2022-06-02] MEDS ORDERED: hydroCHLOROthiazide 12.5 MG CAP PO SCH (09:00)
[2022-06-02] MEDS ORDERED: MULTIVITAMINS, THERA 1 EACH TAB PO SCH (09:00)
== END 2022-06-01 13:14 | disposition home health service (06) ==
LOC: OR 11:05 → 4SSUR 18:45 → OR 06-01 13:14
PROVIDERS: ATTEND Orthopaedic Surgery
DX: M16.11 Unilateral primary osteoarthritis, right hip (principal); G89.18 Other acute postprocedural pain; I11.9 Hypertensive heart disease without heart failure; Z82.49 Family history of ischemic heart disease and other diseases of the circulatory system; Z79.899 Other long term (current) drug therapy
CPT/HCPCS: 97162; 86900; 86901; 85025; 86850; 73501; 27130; 64447; J2250; J3370; J1100; J0690 ×2; J2405 ×2; J3010; J1885

== ENCOUNTER → 2024-09-09 | Outpatient (CLI) | payer MEDICARE, OTHER ==
[2024-09-09 15:16] LABS: HCT 43.7 % (37.2-46.3); HGB 14.6 g/dL (12.0-15.0); MCH 30.2 pg (27.0-32.0); MCHC 33.4 g/dL (32.0-37.0); MCV 90.5 FL (80.0-97.0); NRBC Per 100 WBC 0 X 10*3/uL (0.00-0.01); Platelet Count 216 X 10*3/uL (140-440); RBC 4.83 X 10*6/uL (4.10-5.20); RDW 12.7 % (11.5-14.5); WBC 5.80 X 10*3/uL (4.50-10.00)
[2024-09-09 15:21] LABS: NT-Pro-B-Type Natriuretic Pept 77 pg/mL (0-450)
[2024-09-09 15:23] LABS: ALT 22 U/L (8-44); AST 25 U/L (13-35); Albumin 4.0 g/dL (3.8-4.9); Albumin/Globulin Ratio 1.29 Ratio (1.60-3.17); Alkaline Phosphatase 92 U/L (41-126); Anion Gap 11.70 mmol/L (4.00-12.00); BUN/Creat Ratio 21.83 Ratio (12.00-20.00); Blood Urea Nitrogen 13.1 mg/dL (9.0-27.0); Calcium 10.0 mg/dL (8.7-10.3); Carbon Dioxide 26.3 mmol/L (21.6-31.8); Chloride 100 mmol/L (96-109); Globulin 3.1 g/dL (1.6-3.3); Glucose 102 mg/dL (70-110); Potassium 3.9 mmol/L (3.5-5.5); Sodium 138 mmol/L (135-145); Total Protein 7.1 g/dL (6.2-8.2)
== END | disposition home or self-care (01) ==
LOC: LABWHC1 08:29
PROVIDERS: ATTEND Internal Medicine Interventional Cardiology
DX: R06.09 Other forms of dyspnea (principal)
CPT/HCPCS: 36415; 80053; 83880; 85027